=== PATIENT | female | born 1985 | race Caucasian/White ===

== ENCOUNTER 2022-07-08 07:46 | Inpatient (IN) ==
--- NOTE | 2022-07-08 10:50 | Ultrasound Report ---
US OB limited CLINICAL HISTORY: please estimate EFW COMPARISON STUDY: No previous studies for comparison. TECHNIQUE: Transabdominal sonography of the pelvis was performed. FINDINGS: Please note that a dedicated anatomical survey was not performed. Single viable intra uterine gestation is noted. Cephalic presentation. Amniotic fluid index is 9.14 cm. heart rate is normal at 150 bpm. Placenta is located anteriorly. Biparietal diameter measures 9.88 cm which deb esponds to an estimated gestational age of 40 weeks and 4 days. Head circumference measures 36.20 cm. Femur length measures 7.84 cm which corresponds to estimated gestational age of 40 weeks and 1 day. Abdominal circumference measures 38.43 cm. Estimated weight is 9 pounds and 15 ounces +/- 1 lb 8 oz or 4503 g. IMPRESSION: 1. Single viable intrauterine gestation. Normal heart rate. 2. Estimated weight of 9 pounds and 15 ounces or 4503 g. 3. Amniotic fluid index of 9.14 cm. ACT 112: Negative or not required by law. Electronically signed by: Theo Coronel M.D. 07/08/2022 10:49 AM
[2022-07-08] MEDS ORDERED: LIDOCAINE 1% LOCAL 20 ML VIAL INFIL PRN (11:22)
[2022-07-08] MEDS ORDERED: miSOPROStoL 50 MCG TAB PO ONE (11:22)
[2022-07-08] MEDS ORDERED: OXYTOCIN 30 UNITS/500 ML BAG IV PRN (11:22)
--- NOTE | 2022-07-08 11:29 | Obstetrical Progress Note ---
Date of Service July 08, 2022 Assessment & Plan (1) : Plan: Induction of labor pt is 37 yo G1 @ 39 + weeks Induction of labor for macrosomia done today showed EFW 4503gram Pt sheppard sono hx of DM or GDM Reviewed risk of brachial shoulder dystocia, brachial plexus injury and even permanent brain injury to baby Reviewed sono report with pt will proceed with induction labor FHR; CAT1 Ctx > minimal Cervidil #1 ordered Admission and Anticipated Discharge Date Admission Date: July 08, 2022 Results & Data ([facility]) Vital Signs (Past 12 Hours) Vital Signs Temp Pulse Resp BP 07/08/22 08:27 36.9 C 97 H 18 132/75 07/08/22 11:06 18 07/08/22 11:06 36.9 C 18 07/08/22 07:52 97 H 132/75
[2022-07-08] MEDS: LACTATED RINGER'S 1,000 ML IV PRN (12:00)
[2022-07-08 12:06] LABS: Hematocrit (blood only) 37.6 % (37.0-47.0); Hemoglobin 12.9 g/dl (12.0-16.0); Mean Corpuscular Hgb Conc 34.3 g/dL (32.0-36.0); Mean Corpuscular Volume 90.4 fL (80.0-100.0); Mean Platelet Volume 10.4 fL (9.4-12.4); Platelet Count 250 K/uL (130-400); RDW Coefficient of Variation 13.3 % (11.5-14.5); RDW Standard Deviation 44.2 fL (36.4-46.3); Red Blood Count 4.16 M/uL (4.20-5.40); White Blood Count 15.16 K/ul (4.8-10.8)
[2022-07-08] MEDS ORDERED: PENICILLIN G POTASSIUM 6 MU in DEXTROSE 5% 250 ML IV STA (12:37)
--- NOTE | 2022-07-08 18:22 | Obstetrical Progress Note ---
Date of Service July 08, 2022 Assessment & Plan (1) : Plan: Induction of labor for macrosomia Pt doing well FHR; CAT1 Ctx 1-3mins VE: ft/post Received 1 dose of Cytotec Manfred Dinner Cervidil Admission and Anticipated Discharge Date Admission Date: July 08, 2022 Results & Data ([facility]) Vital Signs (Past 12 Hours) Vital Signs Temp Pulse Resp BP 07/08/22 08:27 36.9 C 97 H 18 132/75 07/08/22 15:42 16 07/08/22 15:42 37.0 C 16 07/08/22 15:43 79 07/08/22 15:43 132/77 07/08/22 11:47 18 07/08/22 11:47 37.3 C 18 07/08/22 11:47 78 07/08/22 11:47 119/63 07/08/22 11:06 18 07/08/22 11:06 36.9 C 18 07/08/22 07:52 97 H 132/75
[2022-07-08] MEDS ORDERED: DINOPROSTONE 10 MG INSERT PV ONE (19:33)
--- NOTE | 2022-07-08 20:20 | Obstetrical Progress Note ---
Date of Service July 08, 2022 Assessment & Plan (1) : Plan: Pt doing well FHR: CAT1 CTX; 4-5min VE; ft/post Cervidil placed in vagina Admission and Anticipated Discharge Date Admission Date: July 08, 2022 Results & Data ([facility]) Vital Signs (Past 12 Hours) Vital Signs Temp Pulse Resp BP 07/08/22 08:27 36.9 C 97 H 18 132/75 07/08/22 19:44 100 H 07/08/22 19:42 18 07/08/22 19:42 36.7 C 18 07/08/22 19:42 131 H 07/08/22 19:42 117/70 07/08/22 15:42 16 07/08/22 15:42 37.0 C 16 07/08/22 15:43 79 07/08/22 15:43 132/77 07/08/22 11:47 18 07/08/22 11:47 37.3 C 18 07/08/22 11:47 78 07/08/22 11:47 119/63 07/08/22 11:06 18 07/08/22 11:06 36.9 C 18
--- NOTE | 2022-07-09 08:16 | History & Physical Report ---
Date of Service July 09, 2022 Assessment & Plan (1) Elective induction of labor planned: Plan: 37-year-old G1, P0 at 40 weeks of gestation, induction of labor at term for suspected macrosomia since yesterday, Vital signs stable afebrile, heart rate reassuring, Cervix is unfavorable, After long discussion of risk of shoulder dystocia patient decided to try for vaginal and PO Cytotec. (2) Macrosomia affecting management of mother in third trimester: Admission and Anticipated Discharge Date Admission Date: July 08, 2022 History of Present Illness Primary Care Provider: Nava Anthony DO Late entry from 8 AM . patient is a 37-year-old G1, P0 at 40 weeks of gestation who was admitted yesterday by Dr. Mann for induction of labor at term for suspected macrosomia. She had a growth ultrasound in the office 3 weeks ago and EFW was over 90th perc entile. She had ultrasound yesterday here and estimated weight was 4503 g +/- 675 gr. Patient was informed about increased risk of shoulder dystocia and the risks and she opted to try for vaginal . Patient has received 1 dose of p.o. Cytotec and then Cervidil overnight. I removed the Cervidil now and her cervix is still closed, thick and presenting part/ head is high not in pelvis. We discussed what to expect from induction of labor which may take a day or 2. We discussed induction agents as p.o. Cytotec, Cervidil. We also discussed of macrosomia with increased risk of shoulder dystocia. We discussed that shoulder dystocia is not predictable and can happen on a smaller baby or may not happen with the larger baby either. We know from the literature that risk of shoulder dyscrasia increases with increasing weight. The risk of shoulder dystocia are brachial plexus injury, clavicle fracture, delayed delivery with asphyxia of and brain injury and even . We also discussed primary is an option. After long discussion patient decided to try for vaginal and take p.o. Cytotec for cervical ripening. All questions were answered. Allergies Allergy/AdvReac Type Severity Reaction Status Date / Time Sulfa (Sulfonamide Allergy Nausea Verified 07/08/22 08:16 Antibiotics) Home Medications Medication Instructions Recorded Confirmed Type Iron (ferrous sulfate) 1 tab PO DAILY 07/08/22 07/08/22 History 1 tab PO DAILY 07/08/22 07/08/22 History Patient History Medical History Endometriosis Normal colonoscopy to rule out rectal pain-2009. Surgical History H/O oral surgery wisdom teeth removal in 2011. Family History Other Hypothyroidism Myocardial infarction Social History Smoking Status: Never smoker Hx Alcohol Use: Yes Hx Substance Use: No Preferred Language: [employer] Tutor Required: No Beliefs That Will Affect Care: None marital status: Current Living Situation: Spouse Other Information That Helps Us Care for You: No Feels Safe at Home: Yes Safety Concerns: Feels Safe At This Time Review of Systems as per Subjective / HPI Physical Exam Constitutional: WD/WN, vitals as above Gastrointestinal (Abdomen): normal bowel sounds, soft, nontender, no hepatosplenomegaly (gravid) Genitourinary: normal external appearance OB Exam Abdomen: + vertex Manual OB Exam: + cervical dilation fingertip, + cervical effacement 10% and + station high OB Exam Monitor Tracing: + external uterine monitor used and + category I Results & Data ([facility]) Vital Signs (Past 12 Hours) Vital Signs Temp Pulse Resp BP 07/09/22 07:10 36.9 C 75 16 126/74 07/09/22 03:09 18 07/09/22 03:09 36.6 C 18 07/09/22 03:07 77 108/57 L 07/08/22 22:31 18 07/08/22 22:31 36.7 C 18 07/08/22 22:31 78 07/08/22 22:31 98/56 L Code Status & VTE Plan VTE Prophylaxis Plan VTE Prophylaxis will be ordered: Yes
[2022-07-09] MEDS: miSOPROStoL 50 MCG TAB PO SCH ×3 (10:01→23:06)
--- NOTE | 2022-07-09 15:23 | Obstetrical Progress Note ---
Date of Service July 09, 2022 Assessment & Plan Admission and Anticipated Discharge Date Admission Date: July 08, 2022 Subjective Patient is reevaluated. 2nd dose of Cytotec was held at 14:00 She feels well, no complaints. She feels mild tightening, not painful. No LOF/VB +FM's FHR categ I [place] mild irregular contractions, palpated as mild and short lasting Continue with PO Cytotec Continue to monitor Results & Data ([facility]) Vital Signs (Past 12 Hours) Vital Signs Temp Pulse Resp BP 07/09/22 09:10 87 124/68 07/09/22 07:10 36.9 C 75 16 126/74
[2022-07-09] MEDS ORDERED: BUTORPHANOL TARTRATE 1 MG/ML VIAL IV PRN (15:36)
[2022-07-09] MEDS: LACTATED RINGER'S 1,000 ML IV PRN ×2 (15:50→17:00)
--- NOTE | 2022-07-09 21:22 | Obstetrical Progress Note ---
Date of Service July 09, 2022 Assessment & Plan Admission and Anticipated Discharge Date Admission Date: July 08, 2022 Subjective Patient is reevaluated She feels well, mild contractions, pain is 4-5/10 with some of them. She does not feel them all. No LOF/VB +FM VE: ft/ 30%/ -3, posterior, FHR categ I [place]: ctxs q 2-4 min Bed side US: Vertex, OP, EFW: 4130 gr +/- 600 gr Discussed options of cervical ripening with PO Cytotec, Cervidil or trial of Coffman balloon with low dose Oxytocin Patient does not think she can tolerate coffman balloon insertion. Patient has questions about C Section. Discussed C section is a major surgery, with risks including but not limited to bleeding , infection, injury to surrounding organs like bowels, bladder, ureters, adhesions, scarring, wound infection, blood cloths in legs/ lungs, longer recovery. She wants to think about all of these and then decide. All questions were answered. Results & Data ([facility]) Vital Signs (Past 12 Hours) Vital Signs Temp Pulse Resp BP 07/09/22 20:30 18 07/09/22 20:30 18 07/09/22 19:03 18 07/09/22 19:03 36.9 C 18 07/09/22 19:04 84 132/77 07/09/22 15:24 18 07/09/22 15:24 36.8 C 18 07/09/22 15:25 72 131/75
[2022-07-09] MEDS ORDERED: CALCIUM CARBONATE 500 MG CHEWABLE TAB PO PRN (22:26)
[2022-07-09] MEDS ORDERED: ePHEDrine sulfate 50 MG/ML AMP ONE (22:27)
[2022-07-09] MEDS ORDERED: SODIUM CHLORIDE 0.9% PF INJ 10 ML VIAL ONE (22:27)
[2022-07-09] MEDS ORDERED: LIDOCAINE 2%/EPINEPHRINE 1:200,000 20 ML SDV ONE (22:27)
[2022-07-09] MEDS ORDERED: fentaNYL citrate PF 100 MCG/2 ML VIAL ONE (22:27)
[2022-07-09] MEDS ORDERED: BUPIVACAINE 0.25% PF 30 ML VIAL ONE (22:27)
[2022-07-09] MEDS ORDERED: fentaNYL 2MCG/ML ROPIVACAINE 1.25MG/ML 100 ML BAG EPI ONE (22:28)
--- NOTE | 2022-07-09 22:28 | Obstetrical Progress Note ---
Date of Service July 09, 2022 Assessment & Plan Admission and Anticipated Discharge Date Admission Date: July 08, 2022 Subjective Patient decided to proceed with cervical ripening/ IOL but does not think she can tolerate Cervidil PV or Coffman balloon. She desires epidural and then place coffman balloon. She desires to eat before that. FHR categ I Continue to monitor closely. Results & Data ([facility]) Vital Signs (Past 12 Hours) Vital Signs Temp Pulse Resp BP 07/09/22 21:54 18 07/09/22 21:54 18 07/09/22 20:30 18 07/09/22 20:30 18 07/09/22 19:03 18 07/09/22 19:03 36.9 C 18 07/09/22 19:04 84 132/77 07/09/22 15:24 18 07/09/22 15:24 36.8 C 18 07/09/22 15:25 72 131/75
[2022-07-09] MEDS ORDERED: NALOXONE HCL 0.4 MG/1 ML VIAL/CARP IV PRN (23:07)
[2022-07-09] MEDS ORDERED: NALOXONE HCL 1 MG in SODIUM CHLORIDE 0.9% 1000ML 1,000 ML IV PRN (23:07)
[2022-07-09] MEDS ORDERED: NALBUPHINE HCL INJ 10 MG/ML AMP IV PRN (23:07)
[2022-07-09] MEDS ORDERED: diphenhydrAMINE 50 MG/ML VIAL IV PRN (23:07)
[2022-07-09] MEDS ORDERED: ePHEDrine sulfate 50 MG/ML AMP IV PRN (23:07)
--- NOTE | 2022-07-09 23:09 | Anesthesiology Consultation ---
Date of Service July 09, 2022 Assessment & Plan (1) Encounter for pre-operative examination: Chart Review Chart Review: Patient NOT seen in Pre Admission Testing and Acceptable Risk for Labor Epidural Consults Requested none History Height/Weight Height: 5 ft 6 in Weight: 94.055 kg Allergies Allergy/AdvReac Type Severity Reaction Status Date / Time Sulfa (Sulfonamide Allergy Nausea Verified 07/08/22 08:16 Antibiotics) Medications Home Medications Medication Instructions Recorded Confirmed Last Taken Iron (ferrous sulfate) 1 tab PO DAILY 07/08/22 07/08/22 07/06/22 08:00 1 tab PO DAILY 07/08/22 07/08/22 07/06/22 08:00 Active Medications Generic Name Dose Route Start Last Admin Trade Name Freq PRN Reason Stop Dose Admin Lactated Ringer's 1,000 mls @ 150 mls/hr 07/08/22 11:22 07/09/22 23:00 Lr IV 07/10/22 11:21 999 mls/hr .[id number] PRN Infusion L&D Protocol Protocol Misoprostol 50 mcg 07/09/22 12:00 07/09/22 23:06 Misoprostol 50 Mcg Tab PO 08/08/22 09:00 Not Given Q4 VALERIA Past Medical History Medical History Endometriosis Normal colonoscopy to rule out rectal pain-2009. Past Family History Family History Other Hypothyroidism Myocardial infarction Past Surgical History Surgical History H/O oral surgery wisdom teeth removal in 2011. Social History Smoking Status: Never smoker Hx Alcohol Use: Yes Hx Substance Use: No substance use type: former substance user Physical Exam Vital Signs Last Vital Signs Temp 98.4 F 07/09/22 19:03 Pulse 96 H 07/09/22 23:04 Resp 18 07/09/22 21:54 BP 132/77 07/09/22 19:04 Pulse Ox 92 07/09/22 23:04 Testing Laboratory Results 07/08/22 11:19 Blood Type A Positive 07/08/22 11:22 Antibody Screen NEGATIVE 07/08/22 11:22
[2022-07-09] MEDS: fentaNYL 2MCG/ML ROPIVACAINE 1.25MG/ML 100 ML BAG EPI PRN (23:36)
[2022-07-10] MEDS ORDERED: OXYTOCIN 30 UNITS/500 ML BAG IV PRN (00:41)
--- NOTE | 2022-07-10 00:46 | Obstetrical Progress Note ---
Date of Service July 10, 2022 Assessment & Plan Admission and Anticipated Discharge Date Admission Date: July 08, 2022 Subjective Patient has received epidural and ready for Coffman balloon insertion FHR categ I VE; tight 1cm/ 20%/ firm/ posterior cervix Patient is placed in dorsal lithotomy position and speculum was placed in vagina, cervix was seen and irretated from exam with some bleeding, cleaned with Betadine Coffman catheter was inserted and inflated with 40 ml of sterile water and applied tension on theinternal of cervix, attached to inner tigh Another coffman catheter was inserted to drain the bladder. VB stopped. Bed side US: placenta anterior and normal Uterus soft Plan to start PCN for GBS and Low dose Oxytocin per protocol, SCD's Continue to monitor closely. Results & Data ([facility]) Vital Signs (Past 12 Hours) Vital Signs Temp Pulse Resp BP Pulse Ox 07/10/22 00:39 111 H 99 07/10/22 00:34 99 07/10/22 00:34 96 H 07/10/22 00:34 93 H 111/55 L 07/10/22 00:29 88 98 07/10/22 00:24 88 99 07/10/22 00:19 91 H 96 07/10/22 00:14 104 H 99 07/10/22 00:09 85 97 07/10/22 00:04 92 H 98 07/09/22 23:45 18 07/09/22 23:45 18 07/09/22 23:50 18 07/09/22 23:50 18 07/09/22 23:55 20 07/09/22 23:55 20 07/10/22 00:03 36.5 C 07/10/22 00:00 18 07/10/22 00:00 18 07/10/22 00:02 101 H 99/56 L 07/09/22 23:59 88 96 07/09/22 23:58 82 96/50 L 07/09/22 23:56 91 H 100/47 L 07/09/22 23:54 105 H 98 07/09/22 23:49 95 H 97 07/09/22 23:48 99 H 105/58 L 07/09/22 23:46 92 H 114/59 L 07/09/22 23:44 96 H 104/55 L 96 07/09/22 23:42 113 H 110/59 L 07/09/22 23:40 110 H 18 123/62 07/09/22 23:39 113 H 97 07/09/22 23:38 97 H 129/67 07/09/22 23:36 106 H 125/69 07/09/22 23:35 104 H 125/70 07/09/22 23:34 103 H 96 07/09/22 23:29 105 H 97 07/09/22 23:30 105 H 18 146/71 H 07/09/22 23:24 110 H 97 07/09/22 23:19 91 H 97 07/09/22 23:14 97 H 96 07/09/22 23:09 95 H 96 07/09/22 23:04 96 H 92 07/09/22 21:54 18 07/09/22 21:54 18 07/09/22 20:30 18 07/09/22 20:30 18 07/09/22 19:03 18 07/09/22 19:03 36.9 C 18 07/09/22 19:04 84 132/77 07/09/22 15:24 18 07/09/22 15:24 36.8 C 18 07/09/22 15:25 72 131/75
[2022-07-10] MEDS: LACTATED RINGER'S 1,000 ML IV PRN (04:20)
[2022-07-10] MEDS: PENICILLIN G POTASSIUM 3 MU in DEXTROSE 5% 100 ML IV PRN ×4 (04:20→15:48)
--- NOTE | 2022-07-10 07:37 | Obstetrical Progress Note ---
Date of Service July 10, 2022 Assessment & Plan Admission and Anticipated Discharge Date Admission Date: July 08, 2022 Subjective Patient feels well, slept and rested No pain nor pressure VE: Guevara bulb was in vagina, removed intact Cervix: 4-5 cm/ 50%/ -3, o bag nor membranes, FHR categ I [place]: ctxs q 2-3 min, Oxytocin is at 9 miu/min Continue to monitor Results & Data ([facility]) Vital Signs (Past 12 Hours) Vital Signs Temp Pulse Resp BP Pulse Ox 07/10/22 07:05 37.2 C 16 07/10/22 07:05 16 07/10/22 07:32 87 124/68 07/10/22 07:29 72 94 07/10/22 07:24 73 95 07/10/22 07:19 76 97 07/10/22 07:17 78 112/64 07/10/22 07:14 79 96 07/10/22 07:09 82 96 07/10/22 07:04 77 95 07/10/22 07:01 68 98/56 L 07/10/22 06:59 68 94 07/10/22 06:54 72 94 07/10/22 06:49 71 94 07/10/22 06:47 68 108/63 07/10/22 06:44 73 95 07/10/22 06:39 84 97 07/10/22 06:34 79 96 07/10/22 06:32 78 119/66 07/10/22 06:30 18 07/10/22 06:30 18 07/10/22 06:29 71 95 07/10/22 06:24 71 96 07/10/22 06:19 78 96 07/10/22 06:15 64 106/59 L 07/10/22 06:14 79 96 07/10/22 06:00 18 07/10/22 06:00 18 07/10/22 06:09 81 96 07/10/22 06:04 83 98 07/10/22 06:03 78 105/52 L 07/10/22 06:01 77 73/51 L 07/10/22 05:30 18 07/10/22 05:30 18 07/10/22 05:59 73 96 07/10/22 05:54 73 94 07/10/22 05:49 76 95 07/10/22 05:46 76 91/49 L 07/10/22 05:44 74 95 07/10/22 05:39 74 95 07/10/22 05:34 75 95 07/10/22 05:32 72 92/55 L 07/10/22 05:29 75 95 07/10/22 05:24 75 95 07/10/22 05:19 76 95 07/10/22 05:17 71 90/52 L 07/10/22 05:14 71 95 07/10/22 05:00 18 07/10/22 05:00 36.9 C 18 07/10/22 05:09 71 95 07/10/22 05:04 73 95 07/10/22 05:01 76 106/51 L 07/10/22 04:59 85 96 07/10/22 04:54 74 96 07/10/22 04:49 82 96 07/10/22 04:45 80 99/54 L 07/10/22 04:44 86 96 07/10/22 04:39 90 96 07/10/22 04:34 92 H 96 07/10/22 04:32 82 98/55 L 07/10/22 04:30 18 07/10/22 04:30 18 07/10/22 04:29 79 95 07/10/22 04:24 82 95 07/10/22 04:19 72 95 07/10/22 04:17 75 94/55 L 07/10/22 04:14 78 95 07/10/22 04:09 78 95 07/10/22 04:04 73 95 07/10/22 04:00 18 07/10/22 04:00 18 07/10/22 04:02 75 92/53 L 07/10/22 03:59 79 95 07/10/22 03:54 78 95 07/10/22 03:49 78 95 07/10/22 03:44 81 95 07/10/22 03:45 80 87/50 L 07/10/22 03:39 75 95 07/10/22 03:34 76 95 07/10/22 03:30 18 07/10/22 03:30 18 07/10/22 03:32 78 88/52 L 07/10/22 03:29 79 94 07/10/22 03:24 85 95 07/10/22 03:19 82 95 07/10/22 03:14 81 95 07/10/22 03:15 77 91/54 L 07/10/22 03:09 80 95 07/10/22 03:04 80 94 07/10/22 03:02 80 92/51 L 07/10/22 02:59 84 94 07/10/22 02:54 81 95 07/10/22 02:49 81 95 07/10/22 02:46 81 98/53 L 07/10/22 02:44 86 95 07/10/22 02:39 86 96 07/10/22 02:34 85 95 07/10/22 02:30 37.0 C 85 18 103/53 L 07/10/22 02:29 82 96 07/10/22 02:24 102 H 97 07/10/22 02:19 79 95 07/10/22 02:16 83 99/49 L 07/10/22 02:14 88 95 07/10/22 02:09 79 94 07/10/22 02:04 81 95 07/10/22 02:00 20 07/10/22 02:00 20 07/10/22 02:01 77 95/53 L 07/10/22 01:59 79 95 07/10/22 01:54 75 95 07/10/22 01:49 79 94 07/10/22 01:45 75 90/51 L 07/10/22 01:44 76 95 07/10/22 01:39 74 95 07/10/22 01:34 78 95 07/10/22 01:30 76 18 95/49 L 07/10/22 01:29 75 96 07/10/22 01:24 78 96 07/10/22 01:19 76 97 07/10/22 01:16 75 102/53 L 07/10/22 01:14 82 99 07/10/22 01:09 79 98 07/10/22 01:04 93 H 99 07/10/22 00:59 91 H 99 07/10/22 00:54 83 99 07/10/22 00:49 96 H 99 07/10/22 00:30 18 07/10/22 00:30 18 07/10/22 00:46 76 100/55 L 07/10/22 00:44 92 H 98 07/10/22 00:39 111 H 99 07/10/22 00:34 99 07/10/22 00:34 96 H 07/10/22 00:34 93 H 111/55 L 07/10/22 00:29 88 98 07/10/22 00:24 88 99 07/10/22 00:19 91 H 96 07/10/22 00:14 104 H 99 07/10/22 00:09 85 97 07/10/22 00:04 92 H 98 07/09/22 23:45 18 07/09/22 23:45 18 07/09/22 23:50 18 07/09/22 23:50 18 07/09/22 23:55 20 07/09/22 23:55 20 07/10/22 00:03 36.5 C 07/10/22 00:00 18 07/10/22 00:00 18 07/10/22 00:02 101 H 99/56 L 07/09/22 23:59 88 96 07/09/22 23:58 82 96/50 L 07/09/22 23:56 91 H 100/47 L 07/09/22 23:54 105 H 98 07/09/22 23:49 95 H 97 07/09/22 23:48 99 H 105/58 L 07/09/22 23:46 92 H 114/59 L 07/09/22 23:44 96 H 104/55 L 96 07/09/22 23:42 113 H 110/59 L 07/09/22 23:40 110 H 18 123/62 07/09/22 23:39 113 H 97 07/09/22 23:38 97 H 129/67 07/09/22 23:36 106 H 125/69 07/09/22 23:35 104 H 125/70 07/09/22 23:34 103 H 96 07/09/22 23:29 105 H 97 07/09/22 23:30 105 H 18 146/71 H 07/09/22 23:24 110 H 97 07/09/22 23:19 91 H 97 07/09/22 23:14 97 H 96 07/09/22 23:09 95 H 96 07/09/22 23:04 96 H 92 07/09/22 21:54 18 07/09/22 21:54 18 07/09/22 20:30 18 07/09/22 20:30 18
[2022-07-10] MEDS: fentaNYL 2MCG/ML ROPIVACAINE 1.25MG/ML 100 ML BAG EPI PRN ×2 (08:13→13:22)
[2022-07-10] MEDS ORDERED: Nursing to Pharmacy Communication SCH (09:00)
[2022-07-10] MEDS ORDERED: BUPIVACAINE 0.25% PF 30 ML VIAL ONE ×2 (09:37→13:32)
[2022-07-10] MEDS ORDERED: fentaNYL citrate PF 100 MCG/2 ML VIAL ONE ×3 (09:55→16:29)
--- NOTE | 2022-07-10 10:01 | Communication Note ---
Date of Service: July 10, 2022 Patient stated having labor pains. The epidural was bolused with 3mL of 0.25% bupivacaine and 50mcg of fentanyl. The patient stated her labor pains were imp roved. VSS throughout.
[2022-07-10] MEDS ORDERED: ONDANSETRON INJ 2 MG/ML 2 ML VIAL IV PRN ×2 (11:25→17:51)
[2022-07-10] MEDS ORDERED: LACTATED RINGER'S 1,000 ML IV SCH ×3 (11:45→18:15)
[2022-07-10] MEDS ORDERED: SODIUM CHLORIDE 0.9% PF INJ 10 ML VIAL ONE (13:32)
--- NOTE | 2022-07-10 14:04 | Communication Note ---
Date of Service: July 10, 2022 The patient stated having increased labor pains. The epidural was bolused with 8mL of 0.125% bupivacaine and 75mcg of fentanyl. The patient stated the labor pains had improved. VSS throughout.
[2022-07-10] MEDS ORDERED: LIDOCAINE 2%/EPINEPHRINE 1:200,000 20 ML SDV ONE ×2 (14:27→16:27)
--- NOTE | 2022-07-10 14:50 | Communication Note ---
Date of Service: July 10, 2022 The patient stated having increasing labor pains. The epidural was bolused with 4mL of lido 2% with epi 1:200K. The patient stated her labor pains were impr elizabeth. VSS throughout.
[2022-07-10] MEDS ORDERED: AZITHROMYCIN 500 MG in DEXTROSE 5% 250 ML IV ONE (16:12)
--- NOTE | 2022-07-10 16:17 | Labor Progress Brief Note ---
Date of Service July 10, 2022 Assessment & Plan Admission and Anticipated Discharge Date Admission Date: July 08, 2022 Physical Exam Genitourinary: Manual OB Exam: + cervical dilation 10 cm, + cervical effacement 100% and + station + 1 OB Exam Monitor Tracing: + external FHT monitor used, + external uterine monitor used, + category I and + normal FHT variability patient unable to tolerate pushing anymore and is requesting a section. Consents obtained. Will notify peds/anesthesia. Results & Data Vital Signs (Past 12 Hours) Vital Signs Temp Pulse Resp BP Pulse Ox 07/10/22 07:05 37.2 C 16 07/10/22 07:05 16 07/10/22 16:14 106 H 98 07/10/22 16:09 105 H 97 07/10/22 16:10 115 H 83 L 07/10/22 16:04 105 H 81 L 07/10/22 15:59 136 H 99 07/10/22 15:57 101 H 80 L 07/10/22 15:54 104 H 99 07/10/22 15:49 116 H 99 07/10/22 15:47 83 130/66 07/10/22 15:44 85 98 07/10/22 15:43 84 85 L 07/10/22 15:39 87 97 07/10/22 15:36 88 81 L 07/10/22 15:34 86 97 07/10/22 15:31 93 H 155/67 H 07/10/22 15:29 87 98 07/10/22 15:30 36.7 C 90 18 84 L 07/10/22 15:24 98 H 98 07/10/22 15:19 93 H 96 07/10/22 15:17 104 H 129/60 07/10/22 15:14 90 94 07/10/22 15:09 86 95 07/10/22 15:04 75 95 07/10/22 15:01 77 110/62 07/10/22 14:59 82 94 07/10/22 14:54 82 93 07/10/22 14:49 79 95 07/10/22 14:47 77 106/56 L 07/10/22 14:44 80 94 07/10/22 14:39 91 H 96 07/10/22 14:37 89 124/66 07/10/22 14:36 99 H 85 L 03/15/23 14:34 81 97 07/10/22 14:32 92 H 105/64 07/10/22 14:29 76 95 07/10/22 14:24 85 98 07/10/22 14:19 94 H 98 07/10/22 14:14 80 L 07/10/22 14:14 92 H 07/10/22 14:14 89 83 L 07/10/22 14:09 85 96 07/10/22 14:04 87 98 07/10/22 14:01 80 123/65 07/10/22 13:59 94 H 97 07/10/22 14:00 85 118/72 07/10/22 13:54 93 H 97 07/10/22 13:49 89 98 07/10/22 13:46 37.3 C 86 134/60 07/10/22 13:44 109 H 98 07/10/22 13:43 98 H 115/56 L 07/10/22 13:39 100 H 98 07/10/22 13:34 107 H 95 07/10/22 13:31 110 H 114/73 07/10/22 13:29 108 H 97 07/10/22 13:24 136 H 95 07/10/22 13:19 103 H 95 07/10/22 13:14 99 H 96 07/10/22 13:10 103 H 83 L 07/10/22 13:09 97 H 97 07/10/22 13:04 95 H 98 07/10/22 13:03 102 H 87 L 07/10/22 13:00 95 H 123/71 07/10/22 12:59 94 H 97 07/10/22 12:54 99 H 98 07/10/22 12:55 109 H 85 L 07/10/22 12:49 103 H 93 07/10/22 12:50 104 H 87 L 07/10/22 12:48 112 H 126/51 L 07/10/22 12:44 116 H 95 07/10/22 12:39 102 H 98 07/10/22 12:34 96 H 97 07/10/22 12:30 98 H 18 114/66 07/10/22 12:29 79 96 07/10/22 12:24 88 98 07/10/22 12:19 76 98 07/10/22 12:16 106 H 114/67 07/10/22 12:14 82 99 07/10/22 12:09 85 96 07/10/22 11:35 37.2 C 07/10/22 12:04 84 98 07/10/22 12:01 93 H 120/72 07/10/22 11:59 83 99 07/10/22 11:54 81 98 07/10/22 11:49 75 98 07/10/22 11:45 71 115/59 L 07/10/22 11:44 75 98 07/10/22 11:39 68 97 07/10/22 11:34 85 98 07/10/22 11:30 85 104/56 L 07/10/22 11:29 83 99 07/10/22 11:24 96 H 99 07/10/22 11:19 73 99 07/10/22 11:16 68 94/51 L 07/10/22 11:14 69 98 07/10/22 11:09 72 97 07/10/22 11:04 70 98 07/10/22 11:00 72 16 90/47 L 07/10/22 10:59 69 98 07/10/22 10:54 80 98 07/10/22 10:49 75 98 07/10/22 10:46 71 96/54 L 07/10/22 10:00 16 07/10/22 10:00 16 07/10/22 10:44 67 98 07/10/22 10:39 71 98 07/10/22 10:34 74 99 07/10/22 10:30 97 H 16 113/62 07/10/22 10:29 87 98 07/10/22 10:24 74 98 07/10/22 10:19 74 98 07/10/22 10:14 77 97 07/10/22 10:15 88 102/59 L 07/10/22 10:09 71 97 07/10/22 10:04 71 98 07/10/22 10:01 83 120/69 07/10/22 09:59 68 98 07/10/22 09:58 71 108/61 07/10/22 09:54 70 98 07/10/22 09:49 76 98 07/10/22 09:46 75 116/62 07/10/22 09:44 71 98 07/10/22 09:42 74 119/67 07/10/22 09:30 16 07/10/22 09:30 16 07/10/22 09:39 76 97 07/10/22 09:34 72 97 07/10/22 09:29 84 99 07/10/22 09:24 79 98 07/10/22 09:19 77 97 07/10/22 09:17 16 07/10/22 09:17 37.0 C 16 07/10/22 09:16 74 111/56 L 07/10/22 09:14 70 97 07/10/22 09:09 77 98 07/10/22 08:00 16 07/10/22 08:00 16 07/10/22 09:04 71 98 07/10/22 09:02 75 105/51 L 07/10/22 08:30 16 07/10/22 08:30 16 07/10/22 08:59 75 97 07/10/22 08:54 75 97 07/10/22 08:49 72 98 07/10/22 08:46 77 115/74 07/10/22 08:44 72 96 07/10/22 08:39 75 97 07/10/22 08:34 83 98 07/10/22 08:31 74 117/76 07/10/22 08:29 77 97 07/10/22 08:24 76 97 07/10/22 08:19 70 97 07/10/22 08:15 85 124/66 07/10/22 08:14 80 97 07/10/22 08:09 74 97 07/10/22 08:04 71 98 07/10/22 08:01 73 113/68 07/10/22 07:59 73 97 07/10/22 07:54 69 97 07/10/22 07:49 83 97 07/10/22 07:30 37.2 C 07/10/22 07:46 82 93/50 L 07/10/22 07:44 78 96 07/10/22 07:39 91 H 96 07/10/22 07:34 86 96 07/10/22 07:32 87 124/68 07/10/22 07:29 72 94 07/10/22 07:24 73 95 07/10/22 07:19 76 97 07/10/22 07:17 78 112/64 07/10/22 07:14 79 96 07/10/22 07:09 82 96 07/10/22 07:04 77 95 07/10/22 07:01 68 98/56 L 07/10/22 06:59 68 94 07/10/22 06:54 72 94 07/10/22 06:49 71 94 07/10/22 06:47 68 108/63 07/10/22 06:44 73 95 07/10/22 06:39 84 97 07/10/22 06:34 79 96 07/10/22 06:32 78 119/66 07/10/22 06:30 18 07/10/22 06:30 18 07/10/22 06:29 71 95 07/10/22 06:24 71 96 07/10/22 06:19 78 96 07/10/22 06:15 64 106/59 L 07/10/22 06:14 79 96 07/10/22 06:00 18 07/10/22 06:00 18 07/10/22 06:09 81 96 07/10/22 06:04 83 98 07/10/22 06:03 78 105/52 L 07/10/22 06:01 77 73/51 L 07/10/22 05:30 18 07/10/22 05:30 18 07/10/22 05:59 73 96 07/10/22 05:54 73 94 07/10/22 05:49 76 95 07/10/22 05:46 76 91/49 L 07/10/22 05:44 74 95 07/10/22 05:39 74 95 07/10/22 05:34 75 95 07/10/22 05:32 72 92/55 L 07/10/22 05:29 75 95 07/10/22 05:24 75 95 07/10/22 05:19 76 95 07/10/22 05:17 71 90/52 L 07/10/22 05:14 71 95 07/10/22 05:00 18 07/10/22 05:00 36.9 C 18 07/10/22 05:09 71 95 07/10/22 05:04 73 95 07/10/22 05:01 76 106/51 L 07/10/22 04:59 85 96 07/10/22 04:54 74 96 07/10/22 04:49 82 96 07/10/22 04:45 80 99/54 L 07/10/22 04:44 86 96 07/10/22 04:39 90 96 07/10/22 04:34 92 H 96 07/10/22 04:32 82 98/55 L 07/10/22 04:30 18 07/10/22 04:30 18 07/10/22 04:29 79 95 07/10/22 04:24 82 95 07/10/22 04:19 72 95 07/10/22 04:17 75 94/55 L
[2022-07-10] MEDS ORDERED: ceFAZolin 2000MG 2,000 MG/15 ML SYR IV SCH (16:30)
[2022-07-10] MEDS ORDERED: ONDANSETRON INJ 2 MG/ML 2 ML VIAL ONE (16:30)
[2022-07-10] MEDS ORDERED: MoRPHine SULFATE PF 1 MG/ML 10 ML AMP/VIAL ONE (16:31)
[2022-07-10] MEDS ORDERED: DEXAMETHASONE SOD INJ 4 MG/ML VIAL ONE (16:32)
[2022-07-10] MEDS ORDERED: CITRIC ACID/SODIUM CITRATE 15 ML UDC ONE (16:32)
[2022-07-10] MEDS ORDERED: OXYTOCIN 10 UNITS/ML 10ML VIAL ONE (16:36)
[2022-07-10] MEDS ORDERED: LACTATED RINGER'S 500 ML IV PRN (17:51)
[2022-07-10] MEDS ORDERED: NALOXONE HCL 0.4 MG/1 ML VIAL/CARP IV PRN (17:51)
[2022-07-10] MEDS ORDERED: diphenhydrAMINE 50 MG/ML VIAL IV PRN (17:51)
[2022-07-10] MEDS ORDERED: ePHEDrine sulfate 50 MG/ML AMP IV PRN (17:51)
[2022-07-10] MEDS ORDERED: NALBUPHINE HCL INJ 10 MG/ML AMP IV PRN (17:51)
[2022-07-10] MEDS ORDERED: NALOXONE HCL 1 MG in SODIUM CHLORIDE 0.9% 1000ML 1,000 ML IV PRN (17:51)
[2022-07-10] MEDS ORDERED: MEPERIDINE HCL 25 MG/ML CARP/VIAL IV PRN (17:51)
[2022-07-10] MEDS ORDERED: MoRPHine SULFATE PF 1 MG/ML 10 ML AMP/VIAL INT SPINAL ONE (17:51)
[2022-07-10] MEDS ORDERED: NALOXONE HCL 0.08 MG in SYRINGE 1.8 ML IV PRN (17:51)
[2022-07-10] MEDS ORDERED: NO NARCOTICS OR SEDATIVES SCH (18:00)
[2022-07-10] MEDS ORDERED: DC INTRASPINAL MORPHINE SCH (18:00)
[2022-07-10] MEDS ORDERED: SODIUM CHLORIDE 0.9% 1000ML 1,000 ML IV SCH (18:00)
--- NOTE | 2022-07-10 18:09 | Post Operative Brief Note ---
Immediate Post Op Note v1 Date of Surgery July 10, 2022 Pre & Post Diagnosis Operation Date: 07/10/22 17:15 Pre-Op Diagnosis: Arrest of descent, patient requesting Post-Op Diagnosis: Arrest of descent, patient requesting I identified the patient and participated in the time-out.: Yes Procedure Operation Date: 07/10/22 17:15 Actual Procedures p Section in LD delivery of live male child at 1711 - Lucas Gutierrez MD Surgeon Lucas Gutierrez MD Vegetable [employer] Dr. Haas Estimated Blood Loss 700 Findings Consistent with Post-Op Diagnosis live male apgars 8/9 weight 8#7oz. Fluids LR 1000 ml. Specimens placenta Drains Guevara Catheter Anesthesia Type Spinal Complications none Disposition Accompanied Patient To Recovery: Yes Overlapping Procedure I was present for: the critical portions of procedure. I was immediately available: during the entire case. Back up surgeon: was not required during procedure.
[2022-07-10] MEDS ORDERED: KETOROLAC 30 MG/ML VIAL IV PRN (18:12)
[2022-07-10] MEDS ORDERED: MAGNESIUM HYDROXIDE SUSP 30 ML UDC PO PRN (18:12)
[2022-07-10] MEDS ORDERED: HYDROCORTISONE ACETATE 25 MG SUPP PR PRN (18:12)
[2022-07-10] MEDS ORDERED: DIPHTHERIA/TETANUS/PERTUSSIS 0.5mL SYR/VIAL (Age 7+yrs) IM ONE (18:12)
[2022-07-10] MEDS ORDERED: BENZOCAINE 20% AER SPR 82.5 GM CAN EXT PRN (18:12)
[2022-07-10] MEDS ORDERED: SENNA 8.6 MG TAB PO PRN (18:12)
--- NOTE | 2022-07-10 18:27 | Anesthesia Procedure Note ---
Date of Service July 10, 2022 Anesthesia Post Epidural Note Vital Signs Vital Signs: Temp Pulse Resp BP Pulse Ox 98.2 F 99 H 16 139/81 94 07/10/22 18:00 07/10/22 18:24 07/10/22 18:20 07/10/22 18:24 07/10/22 18:24 Notes Mental Status: alert / awake / arousable and participated in evaluation Nausea / Vomiting: adequately controlled Pain: adequately controlled Airway Patency, RR, SpO2: stable & adequate BP & HR: stable & adequate Hydration State: stable & adequate Neuraxial Anesthesia: was administered and sensory block is resolving Anesthetic Complications: no major complications apparent and Pt Satisfied with anesthetic care Epidural: Removed without complications and With tip intact
--- NOTE | 2022-07-10 18:28 | Anesthesiology Progress Note ---
Date of Service July 10, 2022 Anesthesia Post Procedure Vital Signs Vital Signs: Temp Pulse Resp BP Pulse Ox 07/10/22 18:20 16 07/10/22 18:10 16 07/10/22 18:00 98.2 F 18 07/10/22 07:05 99.0 F 16 07/10/22 07:05 16 07/10/22 18:24 99 H 139/81 94 07/10/22 18:21 100 H 97 07/10/22 18:19 91 H 93 07/10/22 18:16 91 H 97 07/10/22 18:11 86 98 07/10/22 18:06 94 H 98 07/10/22 18:05 101 H 90 07/10/22 18:01 99 H 97 07/10/22 17:56 97 H 91/52 L 96 07/10/22 17:55 104 H 92 07/10/22 16:46 88 132/68 07/10/22 16:44 92 H 98 07/10/22 16:39 104 H 99 07/10/22 16:40 100 H 86 L 07/10/22 16:34 93 H 100 07/10/22 16:31 89 124/67 07/10/22 16:29 87 99 07/10/22 16:24 108 H 97 07/10/22 16:19 129 H 78 L 07/10/22 16:15 105 H 140/70 07/10/22 16:14 106 H 98 07/10/22 16:09 105 H 97 07/10/22 16:10 115 H 83 L 07/10/22 16:04 105 H 81 L 07/10/22 15:59 136 H 99 07/10/22 15:57 101 H 80 L 07/10/22 15:54 104 H 99 07/10/22 15:49 116 H 99 07/10/22 15:47 83 130/66 07/10/22 15:44 85 98 07/10/22 15:43 84 85 L 07/10/22 15:39 87 97 07/10/22 15:36 88 81 L 07/10/22 15:34 86 97 07/10/22 15:31 93 H 155/67 H 07/10/22 15:29 87 98 07/10/22 15:30 98.1 F 90 18 84 L 07/10/22 15:24 98 H 98 07/10/22 15:19 93 H 96 07/10/22 15:17 104 H 129/60 07/10/22 15:14 90 94 07/10/22 15:09 86 95 07/10/22 15:04 75 95 07/10/22 15:01 77 110/62 07/10/22 14:59 82 94 07/10/22 14:54 82 93 07/10/22 14:49 79 95 07/10/22 14:47 77 106/56 L 07/10/22 14:44 80 94 07/10/22 14:39 91 H 96 07/10/22 14:37 89 124/66 07/10/22 14:36 99 H 85 L 07/10/22 14:34 81 97 07/10/22 14:32 92 H 105/64 07/10/22 14:29 76 95 07/10/22 14:24 85 98 07/10/22 14:19 94 H 98 07/10/22 14:14 80 L 07/10/22 14:14 92 H 07/10/22 14:14 89 83 L 07/10/22 14:09 85 96 07/10/22 14:04 87 98 07/10/22 14:01 80 123/65 07/10/22 13:59 94 H 97 07/10/22 14:00 85 118/72 07/10/22 13:54 93 H 97 07/10/22 13:49 89 98 07/10/22 13:46 99.1 F 86 134/60 07/10/22 13:44 109 H 98 07/10/22 13:43 98 H 115/56 L 07/10/22 13:39 100 H 98 07/10/22 13:34 107 H 95 07/10/22 13:31 110 H 114/73 07/10/22 13:29 108 H 97 07/10/22 13:24 136 H 95 07/10/22 13:19 103 H 95 07/10/22 13:14 99 H 96 07/10/22 13:10 103 H 83 L 07/10/22 13:09 97 H 97 07/10/22 13:04 95 H 98 07/10/22 13:03 102 H 87 L 07/10/22 13:00 95 H 123/71 07/10/22 12:59 94 H 97 07/10/22 12:54 99 H 98 07/10/22 12:55 109 H 85 L 07/10/22 12:49 103 H 93 07/10/22 12:50 104 H 87 L 07/10/22 12:48 112 H 126/51 L 07/10/22 12:44 116 H 95 07/10/22 12:39 102 H 98 07/10/22 12:34 96 H 97 07/10/22 12:30 98 H 18 114/66 07/10/22 12:29 79 96 07/10/22 12:24 88 98 07/10/22 12:19 76 98 07/10/22 12:16 106 H 114/67 07/10/22 12:14 82 99 07/10/22 12:09 85 96 07/10/22 11:35 99.0 F 07/10/22 12:04 84 98 07/10/22 12:01 93 H 120/72 07/10/22 11:59 83 99 07/10/22 11:54 81 98 07/10/22 11:49 75 98 07/10/22 11:45 71 115/59 L 07/10/22 11:44 75 98 07/10/22 11:39 68 97 07/10/22 11:34 85 98 07/10/22 11:30 85 104/56 L 07/10/22 11:29 83 99 07/10/22 11:24 96 H 99 07/10/22 11:19 73 99 07/10/22 11:16 68 94/51 L 07/10/22 11:14 69 98 07/10/22 11:09 72 97 07/10/22 11:04 70 98 07/10/22 11:00 72 16 90/47 L 07/10/22 10:59 69 98 07/10/22 10:54 80 98 07/10/22 10:49 75 98 07/10/22 10:46 71 96/54 L 07/10/22 10:00 16 07/10/22 10:00 16 07/10/22 10:44 67 98 07/10/22 10:39 71 98 07/10/22 10:34 74 99 07/10/22 10:30 97 H 16 113/62 07/10/22 10:29 87 98 07/10/22 10:24 74 98 07/10/22 10:19 74 98 07/10/22 10:14 77 97 07/10/22 10:15 88 102/59 L 07/10/22 10:09 71 97 07/10/22 10:04 71 98 07/10/22 10:01 83 120/69 07/10/22 09:59 68 98 07/10/22 09:58 71 108/61 07/10/22 09:54 70 98 07/10/22 09:49 76 98 07/10/22 09:46 75 116/62 07/10/22 09:44 71 98 07/10/22 09:42 74 119/67 07/10/22 09:30 16 07/10/22 09:30 16 07/10/22 09:39 76 97 07/10/22 09:34 72 97 07/10/22 09:29 84 99 07/10/22 09:24 79 98 07/10/22 09:19 77 97 07/10/22 09:17 16 07/10/22 09:17 98.6 F 16 07/10/22 09:16 74 111/56 L 07/10/22 09:14 70 97 07/10/22 09:09 77 98 07/10/22 08:00 16 07/10/22 08:00 16 07/10/22 09:04 71 98 07/10/22 09:02 75 105/51 L 07/10/22 08:30 16 07/10/22 08:30 16 07/10/22 08:59 75 97 07/10/22 08:54 75 97 07/10/22 08:49 72 98 07/10/22 08:46 77 115/74 07/10/22 08:44 72 96 07/10/22 08:39 75 97 07/10/22 08:34 83 98 07/10/22 08:31 74 117/76 07/10/22 08:29 77 97 07/10/22 08:24 76 97 07/10/22 08:19 70 97 07/10/22 08:15 85 124/66 07/10/22 08:14 80 97 07/10/22 08:09 74 97 07/10/22 08:04 71 98 07/10/22 08:01 73 113/68 07/10/22 07:59 73 97 07/10/22 07:54 69 97 07/10/22 07:49 83 97 07/10/22 07:30 99.0 F 07/10/22 07:46 82 93/50 L 07/10/22 07:44 78 96 07/10/22 07:39 91 H 96 07/10/22 07:34 86 96 07/10/22 07:32 87 124/68 07/10/22 07:29 72 94 07/10/22 07:24 73 95 07/10/22 07:19 76 97 07/10/22 07:17 78 112/64 07/10/22 07:14 79 96 07/10/22 07:09 82 96 07/10/22 07:04 77 95 07/10/22 07:01 68 98/56 L 07/10/22 06:59 68 94 07/10/22 06:54 72 94 07/10/22 06:49 71 94 07/10/22 06:47 68 108/63 07/10/22 06:44 73 95 07/10/22 06:39 84 97 07/10/22 06:34 79 96 07/10/22 06:32 78 119/66 07/10/22 06:30 18 07/10/22 06:30 18 07/10/22 06:29 71 95 07/10/22 06:24 71 96 07/10/22 06:19 78 96 07/10/22 06:15 64 106/59 L 07/10/22 06:14 79 96 07/10/22 06:00 18 07/10/22 06:00 18 07/10/22 06:09 81 96 07/10/22 06:04 83 98 07/10/22 06:03 78 105/52 L 07/10/22 06:01 77 73/51 L 07/10/22 05:30 18 07/10/22 05:30 18 07/10/22 05:59 73 96 07/10/22 05:54 73 94 07/10/22 05:49 76 95 07/10/22 05:46 76 91/49 L 07/10/22 05:44 74 95 07/10/22 05:39 74 95 07/10/22 05:34 75 95 07/10/22 05:32 72 92/55 L 07/10/22 05:29 75 95 07/10/22 05:24 75 95 07/10/22 05:19 76 95 07/10/22 05:17 71 90/52 L 07/10/22 05:14 71 95 07/10/22 05:00 18 07/10/22 05:00 98.4 F 18 07/10/22 05:09 71 95 07/10/22 05:04 73 95 07/10/22 05:01 76 106/51 L 07/10/22 04:59 85 96 07/10/22 04:54 74 96 07/10/22 04:49 82 96 07/10/22 04:45 80 99/54 L 07/10/22 04:44 86 96 07/10/22 04:39 90 96 07/10/22 04:34 92 H 96 07/10/22 04:32 82 98/55 L 07/10/22 04:30 18 07/10/22 04:30 18 07/10/22 04:29 79 95 07/10/22 04:24 82 95 07/10/22 04:19 72 95 07/10/22 04:17 75 94/55 L 07/10/22 04:14 78 95 07/10/22 04:09 78 95 07/10/22 04:04 73 95 07/10/22 04:00 18 07/10/22 04:00 18 07/10/22 04:02 75 92/53 L 07/10/22 03:59 79 95 07/10/22 03:54 78 95 07/10/22 03:49 78 95 07/10/22 03:44 81 95 07/10/22 03:45 80 87/50 L 07/10/22 03:39 75 95 07/10/22 03:34 76 95 07/10/22 03:30 18 07/10/22 03:30 18 07/10/22 03:32 78 88/52 L 07/10/22 03:29 79 94 07/10/22 03:24 85 95 07/10/22 03:19 82 95 07/10/22 03:14 81 95 07/10/22 03:15 77 91/54 L 07/10/22 03:09 80 95 07/10/22 03:04 80 94 07/10/22 03:02 80 92/51 L 07/10/22 02:59 84 94 07/10/22 02:54 81 95 07/10/22 02:49 81 95 07/10/22 02:46 81 98/53 L 07/10/22 02:44 86 95 07/10/22 02:39 86 96 07/10/22 02:34 85 95 07/10/22 02:30 98.6 F 85 18 103/53 L 07/10/22 02:29 82 96 07/10/22 02:24 102 H 97 07/10/22 02:19 79 95 07/10/22 02:16 83 99/49 L 07/10/22 02:14 88 95 07/10/22 02:09 79 94 07/10/22 02:04 81 95 07/10/22 02:00 20 07/10/22 02:00 20 07/10/22 02:01 77 95/53 L 07/10/22 01:59 79 95 07/10/22 01:54 75 95 07/10/22 01:49 79 94 07/10/22 01:45 75 90/51 L 07/10/22 01:44 76 95 07/10/22 01:39 74 95 07/10/22 01:34 78 95 07/10/22 01:30 76 18 95/49 L 07/10/22 01:29 75 96 07/10/22 01:24 78 96 07/10/22 01:19 76 97 07/10/22 01:16 75 102/53 L 07/10/22 01:14 82 99 07/10/22 01:09 79 98 07/10/22 01:04 93 H 99 07/10/22 00:59 91 H 99 07/10/22 00:54 83 99 07/10/22 00:49 96 H 99 07/10/22 00:30 18 07/10/22 00:30 18 07/10/22 00:46 76 100/55 L 07/10/22 00:44 92 H 98 07/10/22 00:39 111 H 99 07/10/22 00:34 99 07/10/22 00:34 96 H 07/10/22 00:34 93 H 111/55 L 07/10/22 00:29 88 98 07/10/22 00:24 88 99 07/10/22 00:19 91 H 96 07/10/22 00:14 104 H 99 07/10/22 00:09 85 97 07/10/22 00:04 92 H 98 07/09/22 23:45 18 07/09/22 23:45 18 07/09/22 23:50 18 07/09/22 23:50 18 07/09/22 23:55 20 07/09/22 23:55 20 07/10/22 00:03 97.7 F 07/10/22 00:00 18 07/10/22 00:00 18 07/10/22 00:02 101 H 99/56 L 07/09/22 23:59 88 96 07/09/22 23:58 82 96/50 L 07/09/22 23:56 91 H 100/47 L 07/09/22 23:54 105 H 98 07/09/22 23:49 95 H 97 07/09/22 23:48 99 H 105/58 L 07/09/22 23:46 92 H 114/59 L 07/09/22 23:44 96 H 104/55 L 96 07/09/22 23:42 113 H 110/59 L 07/09/22 23:40 110 H 18 123/62 07/09/22 23:39 113 H 97 07/09/22 23:38 97 H 129/67 07/09/22 23:36 106 H 125/69 07/09/22 23:35 104 H 125/70 07/09/22 23:34 103 H 96 07/09/22 23:29 105 H 97 07/09/22 23:30 105 H 18 146/71 H 07/09/22 23:24 110 H 97 07/09/22 23:19 91 H 97 07/09/22 23:14 97 H 96 07/09/22 23:09 95 H 96 07/09/22 23:04 96 H 92 07/09/22 21:54 18 07/09/22 21:54 18 07/09/22 20:30 18 07/09/22 20:30 18 07/09/22 19:03 18 07/09/22 19:03 98.4 F 18 07/09/22 19:04 84 132/77 Transfer of Care Handoff Completed per policy Notes Mental Status: alert / awake / arousable and participated in evaluation Nausea / Vomiting: adequately controlled Pain: adequately controlled Airway Patency, RR, SpO2: stable & adequate BP & HR: stable & adequate Hydration State: stable & adequate Neuraxial Anesthesia: was administered and sensory block is resolving Anesthetic Complications: no major complications apparent and Pt Satisfied with anesthetic care
[2022-07-10] MEDS: KETOROLAC 30 MG/ML VIAL IV PRN (19:20)
[2022-07-10] MEDS: OXYTOCIN 20 UNITS in LACTATED RINGER'S 1,000 ML IV SCH (19:20)
--- NOTE | 2022-07-10 20:26 | Operative Report (OR) ---
DATE OF SURGERY: 07/10/2022 SURGEON: Lucas Gutierrez MD FUSING MACHINE FEEDER: Dr. Haas. PROCEDURE: Primary section, low segment transverse. PREOPERATIVE DIAGNOSIS: Arrest of descent, the patient requesting section. POSTOPERATIVE DIAGNOSIS: Arrest of descent, the patient requesting section. FINDINGS: Live male. Apgars were 8 and 9. weight was 8 pounds 7 ounces. ESTIMATED BLOOD LOSS: 700 mL TOTAL FLUIDS: 1000 mL SPECIMENS: Placenta. DRAINS: Guevara. ANESTHESIA: Spinal. COMPLICATIONS: None. CLINICAL HISTORY: The patient is a 37-year-old female, 1, para 0 at 40 weeks and 1 day, who was admitted for induction of labor at term for suspected macrosomia of 4500 grams. The patient was given informed consent. Due to the fact that this is just an estimation, she decided to continue to labor and cervical ripening was accomplished within 2 days and then finally on the third day, she pro gressed to fully dilated. She pushed for about 2+ hours, descent of the head was at +1 station and d ue to maternal exhaustion and pain unrelieved by epidural, she requested a section. A diagn osis of arrest of descent and an elective section due to maternal request was then made. DESCRIPTION OF PROCEDURE: Under satisfactory spinal anesthesia, the patient was prepped and draped i n the usual sterile fashion. The timeout was called. Antibiotics were given. A low Pfannenstiel in cision was then made, carrying the incision down into the layers of the abdomen with successive layer s. Upon entering into the peritoneal cavity, the uterus was noted to be dextrorotated. The w as found to be in the mid pelvis with a lot of edema internally. A low segment transverse incision o ting the lower uterine segment was made. The incision was nicked. Amniotic fluid was clear. The inc ision was widened in the AP diameter. . The head was lifted out of the pelvis and then with the aid of fundal pressure, delivery of the vertex without difficulty and there was delayed cord clampin g and following clamping of the cord, delivery was accomplished without difficulty. Live male. Apga rs was 8 and 9 and weight was 8 pounds 7 ounces. Cord blood was obtained. Placenta was then s ubsequently delivered intact, submitted to pathology. The uterus was then exteriorized. Ring forcep s were then used to grab both angles. There was a slight extension on the left side. This was ident ified and using 0 Vicryl suture in a continuous interlocking fashion, first layer was closed. The se cond layer was imbricating without any difficulty. Tubes, ovaries bilaterally were found to be withi n normal limits. The contents of the uterus was placed back into the normal anatomical position. Th ere was a little bit of oozing from the bleeding site on the right angle and some Kris was used to cover this. The initial sponge, needle, and instrument count were found to be correct. The fascia w as reapproximated from both ends using 0 Vicryl suture in a continuous fashion. Subcuticular layer w as closed with 3-0 plain suture and the skin was reapproximated with chau. Clear urine was noted from the Guevara. Estimated blood loss 700 mL The final sponge, needle and instrument counts were foun d to be correct. The patient was placed supine on a stretcher. She was taken to recovery room in st able condition. Job ID: [id number]
[2022-07-10] MEDS: DOCUSATE SODIUM 100 MG CAP PO SCH (22:07)
[2022-07-10] MEDS: SIMETHICONE 80 MG CHEW PO SCH (22:07)
[2022-07-11] MEDS: KETOROLAC 30 MG/ML VIAL IV PRN ×2 (01:31→07:56)
[2022-07-11] MEDS: OXYTOCIN 20 UNITS in LACTATED RINGER'S 1,000 ML IV SCH (04:18)
[2022-07-11] MEDS ORDERED: CITRIC ACID/SODIUM CITRATE 15 ML UDC PO SCH (06:00)
[2022-07-11 06:49] LABS: Basophils # (auto) 0.05 K/uL (0-0.2); Basophils % (auto) 0.2 %; Eosinophils # (auto) 0.02 K/uL (0-0.50); Eosinophils % (auto) 0.1 %; Hematocrit (blood only) 30.6 % (37.0-47.0); Hemoglobin 10.4 g/dl (12.0-16.0); Immature Granulocytes # (auto) 0.16 K/uL (0.01-0.20); Immature Granulocytes % (auto) 0.8 %; Lymphocytes # (auto) 1.53 K/uL (1.2-3.4); Lymphocytes % (auto) 7.3 %; Mean Corpuscular Hemoglobin 31.1 pg (25.0-34.0); Mean Corpuscular Volume 91.6 fL (80.0-100.0); Mean Platelet Volume 10.6 fL (9.4-12.4); Monocytes # (auto) 1.19 K/uL (0.11-0.59); Monocytes % (auto) 5.7 %; Neutrophils % (auto) 85.9 %; Platelet Count 179 K/uL (130-400); RDW Coefficient of Variation 13.2 % (11.5-14.5); RDW Standard Deviation 44.1 fL (36.4-46.3); Red Blood Count 3.34 M/uL (4.20-5.40); White Blood Count 21.05 K/ul (4.8-10.8)
[2022-07-11] MEDS: FERROUS SULFATE 325 MG TAB PO SCH (07:54)
[2022-07-11] MEDS: DOCUSATE SODIUM 100 MG CAP PO SCH ×2 (07:55→21:13)
[2022-07-11] MEDS: SIMETHICONE 80 MG CHEW PO SCH ×4 (07:55→21:11)
[2022-07-11] MEDS: PRENATAL VITAMIN 1 TAB PO SCH (07:55)
[2022-07-11] MEDS ORDERED: IRON PO SCH (09:00)
[2022-07-11] MEDS ORDERED: NON-FORMULARY MEDICATION (Prenatal 1 TAB) PO SCH (09:00)
--- NOTE | 2022-07-11 09:53 | Obstetrical Progress Note ---
Date of Service July 11, 2022 Assessment & Plan Admission and Anticipated Discharge Date Admission Date: July 08, 2022 Subjective Postop check Patient is seen and examined Feels well, no complaints Pain is under control with meds No CP/ SOB/ Dizziness/ N&V/ VB/ Leg pain Not OOB yet Tolerating clears Breast feeding her baby Vital Signs Temp Pulse Resp BP Pulse Ox O2 Del Method 07/11/22 09:00 18 98 07/11/22 08:00 18 98 07/11/22 07:00 18 99 07/11/22 06:00 20 97 07/11/22 04:50 20 98 07/11/22 04:50 36.9 C 80 20 115/70 95 Room Air 07/11/22 04:00 18 95 07/11/22 03:00 18 97 07/11/22 02:00 20 97 07/11/22 01:00 20 96 07/11/22 00:00 18 96 07/10/22 23:10 20 95 07/10/22 23:10 37.2 C 82 20 129/82 95 Room Air 07/10/22 22:00 20 96 Lab Results 07/08/22 07/08/22 07/08/22 Range/Units 11:19 11:22 Unknown WBC 15.16 H (4.8-10.8) K/ul RBC 4.16 L (4.20-5.40) M/uL Hgb 12.9 (12.0-16.0) g/dl Hct 37.6 (37.0-47.0) % MCV 90.4 (80.0-100.0) fL MCH 31.0 (25.0-34.0) pg MCHC 34.3 (32.0-36.0) g/dL RDW Std Deviation 44.2 (36.4-46.3) fL RDW Coeff of Chapo 13.3 (11.5-14.5) % Plt Count 250 (130-400) K/uL MPV 10.4 (9.4-12.4) fL Immature Gran % (Auto) % Neut % (Auto) % Lymph % (Auto) % Door % (Auto) % Eos % (Auto) % Baso % (Auto) % Neut # (Auto) (1.40-6.50) K/uL Lymph # (Auto) (1.2-3.4) K/uL Door # (Auto) (0.11-0.59) K/uL Eos # (Auto) (0-0.50) K/uL Baso # (Auto) (0-0.2) K/uL Immature Gran # (Auto) (0.01-0.20) K/uL SARS-CoV-2, RNA, NAAT NEGATIVE (NEGATIVE) Blood Type A Positive Antibody Screen NEGATIVE 07/11/22 Range/Units 06:04 WBC 21.05 H (4.8-10.8) K/ul RBC 3.34 L (4.20-5.40) M/uL Hgb 10.4 L (12.0-16.0) g/dl Hct 30.6 L (37.0-47.0) % MCV 91.6 (80.0-100.0) fL MCH 31.1 (25.0-34.0) pg MCHC 34.0 (32.0-36.0) g/dL RDW Std Deviation 44.1 (36.4-46.3) fL RDW Coeff of Chapo 13.2 (11.5-14.5) % Plt Count 179 (130-400) K/uL MPV 10.6 (9.4-12.4) fL Immature Gran % (Auto) 0.8 % Neut % (Auto) 85.9 % Lymph % (Auto) 7.3 % Door % (Auto) 5.7 % Eos % (Auto) 0.1 % Baso % (Auto) 0.2 % Neut # (Auto) 18.10 H (1.40-6.50) K/uL Lymph # (Auto) 1.53 (1.2-3.4) K/uL Door # (Auto) 1.19 H (0.11-0.59) K/uL Eos # (Auto) 0.02 (0-0.50) K/uL Baso # (Auto) 0.05 (0-0.2) K/uL Immature Gran # (Auto) 0.16 (0.01-0.20) K/uL SARS-CoV-2, RNA, NAAT (NEGATIVE) Blood Type Antibody Screen Intake & Output 07/10/22 07/11/22 07/11/22 22:59 06:59 14:59 Intake Total 81.9 / 1305.5 1002 / 1305.5 Output Total 1050 / 2700 650 / 2700 Balance -968.1 / -1394.5 352 / -1394.5 Intake: IV 81.9 / 1305.5 1002 / 1305.5 Oxytocin 20 units In Lactated 1002 / 1002 Ringer's 1,000 ml @ 125 mls/hr IV .Q8H1M VALERIA Rx#:[id number] Oxytocin 30 units In 500 ml @ 0 81.9 / 91.5 UNITS/HR IV .Q0M PRN Rx#: [id number] Output: Urine Amount (Catheter) 1050 / 2700 650 / 2700 Coffman/Indwelling 1050 / 2550 650 / 2550 PE: General: Alert, orientedx3, NAD CVS: S1S2 RRR Lungs: CTAB Abd: soft, NT, ND, BS+, Fundus firm Dressing/ Incision C/D/I No VB Ext: NT, no edema, SCD's on AP: 37 yo female s/p Primary Csection , pod#1 VSS Afebrile doing well Continue to routine postop care Encourage PO intake, may ambulate D/C coffamn Results & Data Vital Signs (Past 12 Hours) Vital Signs Temp Pulse Resp BP Pulse Ox O2 Del Method 07/11/22 09:00 18 98 07/11/22 08:00 18 98 07/11/22 07:00 18 99 07/11/22 06:00 20 97 07/11/22 04:50 20 98 07/11/22 04:50 36.9 C 80 20 115/70 95 Room Air 07/11/22 04:00 18 95 07/11/22 03:00 18 97 07/11/22 02:00 20 97 07/11/22 01:00 20 96 07/11/22 00:00 18 96 07/10/22 23:10 20 95 07/10/22 23:10 37.2 C 82 20 129/82 95 Room Air 07/10/22 22:00 20 96
[2022-07-11] MEDS ORDERED: MEPERIDINE HCL 50 MG/ML CARP IV PRN (11:51)
[2022-07-11] MEDS ORDERED: PROMETHAZINE HCL 25 MG in SODIUM CHLORIDE 0.9% 50 ML IV PRN (11:51)
[2022-07-11] MEDS ORDERED: KETOROLAC 30 MG/ML VIAL IV PRN (11:51)
[2022-07-11] MEDS ORDERED: diphenhydrAMINE 50 MG/ML VIAL IV PRN (11:51)
[2022-07-11] MEDS ORDERED: diphenhydrAMINE Capsule 25 MG CAP PO PRN (11:51)
[2022-07-11] MEDS ORDERED: ONDANSETRON INJ 2 MG/ML 2 ML VIAL IV PRN (11:51)
[2022-07-11] MEDS: oxyCODONE/ACETAMINOPHEN 5mg/325mg TAB PO PRN ×3 (12:13→21:12)
[2022-07-11] MEDS: IBUPROFEN 600 MG TAB PO PRN ×3 (12:14→21:12)
[2022-07-11] MEDS ORDERED: bisacodyL 5 MG TABEC PO SCH (20:00)
[2022-07-12] MEDS: IBUPROFEN 600 MG TAB PO PRN ×4 (01:02→19:58)
[2022-07-12] MEDS: oxyCODONE/ACETAMINOPHEN 5mg/325mg TAB PO PRN ×5 (01:02→21:59)
[2022-07-12 06:37] LABS: Basophils # (auto) 0.07 K/uL (0-0.2); Basophils % (auto) 0.3 %; Eosinophils # (auto) 0.16 K/uL (0-0.50); Eosinophils % (auto) 0.8 %; Hematocrit (blood only) 27.8 % (37.0-47.0); Hemoglobin 9.6 g/dl (12.0-16.0); Lymphocytes # (auto) 1.34 K/uL (1.2-3.4); Lymphocytes % (auto) 6.5 %; Mean Corpuscular Hemoglobin 31.8 pg (25.0-34.0); Mean Corpuscular Hgb Conc 34.5 g/dL (32.0-36.0); Mean Corpuscular Volume 92.1 fL (80.0-100.0); Mean Platelet Volume 10.3 fL (9.4-12.4); Monocytes # (auto) 1.34 K/uL (0.11-0.59); Monocytes % (auto) 6.5 %; Neutrophils # (auto) 17.66 K/uL (1.40-6.50); Neutrophils % (auto) 84.9 %; Platelet Count 163 K/uL (130-400); RDW Coefficient of Variation 13.5 % (11.5-14.5); Red Blood Count 3.02 M/uL (4.20-5.40); White Blood Count 20.77 K/ul (4.8-10.8)
[2022-07-12] MEDS: PRENATAL VITAMIN 1 TAB PO SCH (08:05)
[2022-07-12] MEDS: DOCUSATE SODIUM 100 MG CAP PO SCH ×2 (08:05→19:59)
[2022-07-12] MEDS: FERROUS SULFATE 325 MG TAB PO SCH (08:05)
[2022-07-12] MEDS: SIMETHICONE 80 MG CHEW PO SCH ×4 (08:05→19:59)
--- NOTE | 2022-07-12 08:23 | Obstetrical Progress Note ---
Date of Service July 12, 2022 Assessment & Plan (1) Normal course: Continue scheduled pain medication, will give IV Toradol if pain is uncontrolled/or needed for breakthrough Continue care at this time Plan to discharge home tomorrow Subjective Ambulation: ambulating normally Voiding: no voiding problems Passing Gas:: Yes Diet Tolerance:: regular diet Lochia:: Moderate Feeding Type:: breast feeding Current Pain Level(1-10): 6 Patient was sitting in chair at this time, and was taking her morning pain medication. States pain has been significant, but feels like it is well controlled with p.o. medication at this time. Declines any higher dose of pain medication. Wants to stay here in the chair until she feels better after taking her pain medication. Wants to go home tomorrow Physical Exam Constitutional WD/WN, vitals as above Respiratory normal respiratory effort, lungs clear to auscultation Cardiovascular RRR, no murmur, no edema Gastrointestinal (Abdomen) normal bowel sounds, soft, nontender, no hepatosplenomegaly Incision: Clean dry intact and well-healing, chau in place Results & Data Vital Signs (Past 12 Hours) Vital Signs Temp Pulse Resp BP Pulse Ox O2 Del Method 07/11/22 23:26 36.7 C 91 H 18 117/72 95 Room Air Laboratory Results Laboratory Results WBC 20.77 K/ul (4.8-10.8) H 07/12/22 06:13 RBC 3.02 M/uL (4.20-5.40) L 07/12/22 06:13 Hgb 9.6 g/dl (12.0-16.0) L 07/12/22 06:13 Hct 27.8 % (37.0-47.0) L 07/12/22 06:13 MCV 92.1 fL (80.0-100.0) 07/12/22 06:13 MCH 31.8 pg (25.0-34.0) 07/12/22 06:13 MCHC 34.5 g/dL (32.0-36.0) 07/12/22 06:13 RDW Std Deviation 45.0 fL (36.4-46.3) 07/12/22 06:13 RDW Coeff of Chapo 13.5 % (11.5-14.5) 07/12/22 06:13 Plt Count 163 K/uL (130-400) 07/12/22 06:13 MPV 10.3 fL (9.4-12.4) 07/12/22 06:13 Immature Gran % (Auto) 1.0 % 07/12/22 06:13 Neut % (Auto) 84.9 % 07/12/22 06:13 Lymph % (Auto) 6.5 % 07/12/22 06:13 [place] % (Auto) 6.5 % 07/12/22 06:13 Eos % (Auto) 0.8 % 07/12/22 06:13 Baso % (Auto) 0.3 % 07/12/22 06:13 Neut # (Auto) 17.66 K/uL (1.40-6.50) H 07/12/22 06:13 Lymph # (Auto) 1.34 K/uL (1.2-3.4) 07/12/22 06:13 [place] # (Auto) 1.34 K/uL (0.11-0.59) H 07/12/22 06:13 Eos # (Auto) 0.16 K/uL (0-0.50) 07/12/22 06:13 Baso # (Auto) 0.07 K/uL (0-0.2) 07/12/22 06:13 Immature Gran # (Auto) 0.20 K/uL (0.01-0.20) 07/12/22 06:13 SARS-CoV-2, RNA, NAAT NEGATIVE (NEGATIVE) 07/08/22 Unknown Blood Type A Positive 07/08/22 11:22 Antibody Screen NEGATIVE 07/08/22 11:22 Impressions Obstetrics Ultrasound 07/08/22 09:37 US OB limited CLINICAL HISTORY: please estimate EFW COMPARISON STUDY: No previous studies for comparison. TECHNIQUE: Transabdominal sonography of the pelvis was performed. FINDINGS: Please note that a dedicated anatomical survey was not performed. Single viable intrauterine gestation is noted. Cephalic presentation. Amniotic fluid index is 9.14 cm. heart rate is normal at 150 bpm. Placenta is located anteriorly. Biparietal diameter measures 9.88 cm which corresponds to an estimated gestational age of 40 weeks and 4 days. Head circumference measures 36.20 cm. Femur length measures 7.84 cm which corresponds to estimated gestational age of 40 weeks and 1 day. Abdominal circumference measures 38.43 cm. Estimated weight is 9 pounds and 15 ounces +/- 1 lb 8 oz or 4503 g. IMPRESSION: 1. Single viable intrauterine gestation. Normal heart rate. 2. Estimated weight of 9 pounds and 15 ounces or 4503 g. 3. Amniotic fluid index of 9.14 cm. ACT 112: Negative or not required by law. Electronically signed by: Theo Coronel M.D. 07/08/2022 10:49 AM
[2022-07-12] MEDS ORDERED: bisacodyL 10 MG SUPP PR PRN (18:02)
[2022-07-13] MEDS: IBUPROFEN 600 MG TAB PO PRN ×2 (00:29→05:55)
[2022-07-13] MEDS: oxyCODONE/ACETAMINOPHEN 5mg/325mg TAB PO PRN ×3 (03:30→12:47)
[2022-07-13] MEDS: DOCUSATE SODIUM 100 MG CAP PO SCH (07:44)
[2022-07-13] MEDS: FERROUS SULFATE 325 MG TAB PO SCH (07:44)
[2022-07-13] MEDS: PRENATAL VITAMIN 1 TAB PO SCH (07:44)
[2022-07-13] MEDS: SIMETHICONE 80 MG CHEW PO SCH (07:44)
[2022-07-13] MEDS ORDERED: MAGNESIUM HYDROXIDE SUSP 30 ML UDC PO ONE (08:17)
[2022-07-13 08:25] LABS: Basophils # (auto) 0.04 K/uL (0-0.2); Basophils % (auto) 0.2 %; Eosinophils # (auto) 0.15 K/uL (0-0.50); Eosinophils % (auto) 0.9 %; Hematocrit (blood only) 28.2 % (37.0-47.0); Hemoglobin 9.5 g/dl (12.0-16.0); Immature Granulocytes # (auto) 0.18 K/uL (0.01-0.20); Immature Granulocytes % (auto) 1.1 %; Lymphocytes # (auto) 1.26 K/uL (1.2-3.4); Lymphocytes % (auto) 7.4 %; Mean Corpuscular Hemoglobin 31.4 pg (25.0-34.0); Mean Corpuscular Hgb Conc 33.7 g/dL (32.0-36.0); Mean Corpuscular Volume 93.1 fL (80.0-100.0); Mean Platelet Volume 9.8 fL (9.4-12.4); Monocytes # (auto) 0.97 K/uL (0.11-0.59); Monocytes % (auto) 5.7 %; Neutrophils # (auto) 14.35 K/uL (1.40-6.50); Neutrophils % (auto) 84.7 %; Platelet Count 197 K/uL (130-400); RDW Coefficient of Variation 13.6 % (11.5-14.5); RDW Standard Deviation 46.1 fL (36.4-46.3); Red Blood Count 3.03 M/uL (4.20-5.40); White Blood Count 16.95 K/ul (4.8-10.8)
--- NOTE | 2022-07-13 08:27 | Obstetrical Progress Note ---
Date of Service July 13, 2022 Assessment & Plan Admission and Anticipated Discharge Date Admission Date: July 08, 2022 Subjective Patient is seen and examined. She feels well, no complaints other than soreness. Pain is under control with oral meds. Ambulating without dizziness Voiding without difficulty Tolerating regular diet with out N&V Flatus + BM + on 07/11, none since then Bleeding is minimal No fever/ chills/ CP/ SOB/ N&V/ Leg pain Breast feeding without problems Vital Signs Temp Pulse Resp BP BP Pulse Ox O2 Del Method 07/12/22 20:14 36.8 C 110 H 18 140/76 98 Room Air 07/12/22 14:30 37.0 C 128 H 19 146/80 H 99 Room Air Lab Results 07/08/22 07/08/22 07/08/22 Range/Units 11:19 11:22 Unknown WBC 15.16 H (4.8-10.8) K/ul RBC 4.16 L (4.20-5.40) M/uL Hgb 12.9 (12.0-16.0) g/dl Hct 37.6 (37.0-47.0) % MCV 90.4 (80.0-100.0) fL MCH 31.0 (25.0-34.0) pg MCHC 34.3 (32.0-36.0) g/dL RDW Std Deviation 44.2 (36.4-46.3) fL RDW Coeff of Chapo 13.3 (11.5-14.5) % Plt Count 250 (130-400) K/uL MPV 10.4 (9.4-12.4) fL Immature Gran % (Auto) % Neut % (Auto) % Lymph % (Auto) % [place] % (Auto) % Eos % (Auto) % Baso % (Auto) % Neut # (Auto) (1.40-6.50) K/uL Lymph # (Auto) (1.2-3.4) K/uL [place] # (Auto) (0.11-0.59) K/uL Eos # (Auto) (0-0.50) K/uL Baso # (Auto) (0-0.2) K/uL Immature Gran # (Auto) (0.01-0.20) K/uL SARS-CoV-2, RNA, NAAT NEGATIVE (NEGATIVE) Blood Type A Positive Antibody Screen NEGATIVE 07/11/22 07/12/22 07/13/22 Range/Units 06:04 06:13 08:16 WBC 21.05 H 20.77 H 16.95 H (4.8-10.8) K/ul RBC 3.34 L 3.02 L 3.03 L (4.20-5.40) M/uL Hgb 10.4 L 9.6 L 9.5 L (12.0-16.0) g/dl Hct 30.6 L 27.8 L 28.2 L (37.0-47.0) % MCV 91.6 92.1 93.1 (80.0-100.0) fL MCH 31.1 31.8 31.4 (25.0-34.0) pg MCHC 34.0 34.5 33.7 (32.0-36.0) g/dL RDW Std Deviation 44.1 45.0 46.1 (36.4-46.3) fL RDW Coeff of Chapo 13.2 13.5 13.6 (11.5-14.5) % Plt Count 179 163 197 (130-400) K/uL MPV 10.6 10.3 9.8 (9.4-12.4) fL Immature Gran % (Auto) 0.8 1.0 1.1 % Neut % (Auto) 85.9 84.9 84.7 % Lymph % (Auto) 7.3 6.5 7.4 % [place] % (Auto) 5.7 6.5 5.7 % Eos % (Auto) 0.1 0.8 0.9 % Baso % (Auto) 0.2 0.3 0.2 % Neut # (Auto) 18.10 H 17.66 H 14.35 H (1.40-6.50) K/uL Lymph # (Auto) 1.53 1.34 1.26 (1.2-3.4) K/uL [place] # (Auto) 1.19 H 1.34 H 0.97 H (0.11-0.59) K/uL Eos # (Auto) 0.02 0.16 0.15 (0-0.50) K/uL Baso # (Auto) 0.05 0.07 0.04 (0-0.2) K/uL Immature Gran # (Auto) 0.16 0.20 0.18 (0.01-0.20) K/uL SARS-CoV-2, RNA, NAAT (NEGATIVE) Blood Type Antibody Screen PE: General: Alert, orientedx3, NAD CVS: S1S2 RRR Lungs; CTAB Abd: soft, NT, ND, BS+, fundus firm, below Umbilicus Incision: Clean, dry, intact Perineum intact, Lochia rubra minimal Ext; NT, 2+/ 2+ edema, Homans sign neg/neg AP: 37 yo s/p C Section, pod# 3 VSS Afebrile doing well Continue routine postop care Encourage ambulation, PO intake All questions were answered D/C home , f/u in office
== END 2022-07-13 12:55 | disposition home or self-care (01) | DRG 788 ==
LOC: 4S1 07:46 → 4E2 07-10 20:34
DX: O75.81 Maternal exhaustion complicating labor and delivery; O28.3 Abnormal ultrasonic finding on antenatal screening of mother; O36.63X0 Maternal care for excessive fetal growth, third trimester, not applicable or unspecified; O99.824 Streptococcus B carrier state complicating childbirth; Z3A.39 39 weeks gestation of pregnancy; Z88.2 Allergy status to sulfonamides; Z79.899 Other long term (current) drug therapy; Z37.0 Single live birth; O62.0 Primary inadequate contractions

== ENCOUNTER 2022-07-19 09:50 | Inpatient (IN) ==
[2022-07-19] MEDS ORDERED: SODIUM CHLORIDE 0.9% 1000ML 1,000 ML IV SCH (11:00)
[2022-07-19] MEDS ORDERED: HYDROmorphone INJ 1 MG/ML SYRINGE IV STA ×3 (11:01→14:12)
[2022-07-19] MEDS ORDERED: ONDANSETRON INJ 2 MG/ML 2 ML VIAL IV STA (11:16)
[2022-07-19 11:21] LABS: Basophils # (auto) 0.08 K/uL (0-0.2); Basophils % (auto) 0.4 %; Eosinophils # (auto) 0.14 K/uL (0-0.50); Eosinophils % (auto) 0.6 %; Hematocrit (blood only) 28.2 % (37.0-47.0); Hemoglobin 9.4 g/dl (12.0-16.0); Immature Granulocytes # (auto) 1.05 K/uL (0.01-0.20); Immature Granulocytes % (auto) 4.7 %; Lymphocytes # (auto) 1.31 K/uL (1.2-3.4); Lymphocytes % (auto) 5.9 %; Mean Corpuscular Hgb Conc 33.3 g/dL (32.0-36.0); Mean Corpuscular Volume 93.1 fL (80.0-100.0); Mean Platelet Volume 8.9 fL (9.4-12.4); Monocytes # (auto) 1.08 K/uL (0.11-0.59); Monocytes % (auto) 4.9 %; Neutrophils # (auto) 18.59 K/uL (1.40-6.50); Neutrophils % (auto) 83.5 %; Platelet Count 567 K/uL (130-400); RDW Standard Deviation 47.9 fL (36.4-46.3); Red Blood Count 3.03 M/uL (4.20-5.40); White Blood Count 22.25 K/ul (4.8-10.8)
[2022-07-19 11:27] LABS: iSTAT Creatinine 0.6 mg/dl (0.6-1.3); iSTAT Hemoglobin 9.2 g/dl (12.0-16.0); iSTAT Ionized Calcium 1.05 mmol/l (1.12-1.32); iSTAT Potassium 3.2 mmol/L (3.3-5.0)
[2022-07-19 11:28] LABS: Albumin Level 2.7 gm/dl (3.4-5.0); BUN Creatinine Ratio 17.7 (10-20); Bilirubin Direct 0.1 mg/dl (0-0.2); Bilirubin,Total 0.5 mg/dl (0.2-1.0); Calcium 8.3 mg/dl (8.6-10.3); Creatinine Clr Calc Pharmacy 140.6 ml/min; Est GFR (African American) 133.5 ml/min; Est GFR (Non-African American) 115.2 ml/min; Magnesium 1.8 mg/dl (1.7-2.4); Potassium 3.2 mmol/L (3.5-5.1); Total Protein 6.2 gm/dl (6.0-8.3)
[2022-07-19] MEDS ORDERED: OPTIRAY 350 100ml IV ONE (11:33)
[2022-07-19 11:34] LABS: Troponin I High Sensitivity 32.6 pg/ml (0-14)
[2022-07-19 11:41] LABS: Appearance Urine Turbid (Clear); Bacteria Urine Automated Negative (Negative); Bilirubin Urine Negative (Negative); Blood Urine 3+ (Negative); Color Urine Dark Yellow; Epithelial Cell Urine Auto 20-30 /lpf (0-5); Glucose Urine UA Negative (Negative); Ketones Urine 4+ (Negative); Leukocyte Esterase Urine 2+ (Negative); Nitrite Urine Negative (Negative); Protein Urine 2+ (Negative); RBC Urine Automated >30 /hpf (0-4); Urobilinogen Urine Negative (Negative); WBC Urine Automated >30 /hpf (0-5)
[2022-07-19 11:55] LABS: INR 1.1 (0.9-1.1); Partial Thromboplastin Ratio 1.1; Partial Thromboplastin Time 30.8 Seconds (21.0-31.0); Prothrombin Time 11.4 Seconds (9.0-12.0)
--- NOTE | 2022-07-19 12:16 | CT Scan Report ---
CT abd pelvis IV con only CLINICAL HISTORY: abd pain s/p c section erythma and warmth over inc. was performed 07/11/19 TECHNIQUE: Helical axial images of the abdomen and pelvis were obtained and displayed. Automated dose lowering techniques and/or adjustment according to patient size were utilized for this exam. This e xam was performed with intravenous contrast. CT DOSE: 796.30 mGy.cm COMPARISON: None available at the time of this dictation. FINDINGS: Lower chest: Bibasilar atelectasis versus scarring is seen. Liver: Unremarkable. No focal lesions are seen. Gallbladder and biliary tree: No calcified gallstones. Normal caliber wall. No intra- or extrahepatic biliary ductal dilation. Pancreas: Unremarkable, no focal lesions. Spleen: Unremarkable. Adrenals: Unremarkable. Kidneys and ureters: Unremarkable. Bladder: Limited evaluation due to underdistention. Reproductive organs: Hyperemic appearance of the uterus compatible with recent state. Bowel: Prominent abdominal fluid is seen with development of some enhancing asher. Lymph nodes Retroperitoneal: Unremarkable. Pelvic: Unremarkable. Mesenteric: Unremarkable. Peritoneum: Normal. Vessels: Unremarkable. Abdominal wall: Incision is seen in the lower abdomen compatible with recent . A small amoun t of subcutaneous edema is seen without encapsulated drainable fluid collection. Bones: Unremarkable. IMPRESSION: 1. There is a moderate amount of abdominal fluid with some enhancing asher suggesting development of partial encapsulation. Findings are concerning for peritonitis/abscess formation in this patient wit h leukocytosis. 2. Expected postsurgical fat stranding and skin thickening at the site of the incision. No evidence of drainable subcutaneous collection. 3. Expected appearance of the uterus. ACT 112: Negative or not required by law. Electronically signed by: Toan Mccall M.D. 07/19/2022 12:15 PM
--- NOTE | 2022-07-19 12:17 | XRay Report ---
XR chest 1V portable CLINICAL HISTORY: Sepsis TECHNIQUE: Single frontal radiograph of the chest was obtained. Comparison: None available at the time of this dictation. FINDINGS: No lines and tubes are seen. The cardiomediastinal silhouette is normal. The lungs are clear. No evid ence of pleural effusion or pneumothorax. IMPRESSION: No acute chest disease. ACT 112: Negative or not required by law. Electronically signed by: Toan Mccall M.D. 07/19/2022 12:16 PM
[2022-07-19] MEDS ORDERED: VANCOMYCIN CONSULT ACTIVE PRN ×2 (12:24→21:14)
[2022-07-19] MEDS ORDERED: cefTRIAXone SODIUM 1 GM ADDVIAL IV STA (12:24)
[2022-07-19] MEDS ORDERED: VANCOMYCIN HCL 2,250 MG in SODIUM CHLORIDE 0.9% 500 ML IV ONE (12:24)
[2022-07-19] MEDS ORDERED: cefTRIAXone SODIUM 2,000 MG in DEXTROSE 5% 50 ML IV STA (12:38)
[2022-07-19] MEDS ORDERED: POTASSIUM CHLORIDE / WTR 10 MEQ/100 ML PLCT IV ONE (13:35)
--- NOTE | 2022-07-19 13:49 | Emergency Department Note ---
History of Present Illness General Chief complaint: Pelvic Pain Stated complaint: PAIN, POST Time Seen by Provider: 07/19/22 10:37 History of Present Illness Provider complaint: abdominal pain Maximum Pain Intensity: 10 37-year-old G1, P1 presents emergency department for abdominal pain. Patient had a done by [facility] CORRUGATOR OPERATOR Dr. Morales on 10/10/2021. She reports increasing abdominal pain. She reports some discharge from the incision area. She reports some subjective fevers. Patient has been taking Tylenol for pain. She reports she had blood work done in [facility] which showed an elevated white blood cell count. Patient reports she has been taking Tylenol for the pain. Home Medications Medication Instructions Recorded Confirmed Type Iron (ferrous sulfate) 1 tab PO DAILY 07/08/22 07/08/22 History 1 tab PO DAILY 07/08/22 07/08/22 History breast pump #1 ea 07/12/22 Rx oxycodone-acetaminophen 5 mg-325 1 tab PO Q4H #20 tabs 07/13/22 Rx mg tablet (Percocet) vits no.124-ferrous fum 1 tab PO DAILY@08 #90 tabs 07/13/22 Rx 27 mg iron-folic acid 800 mcg tablet ( Vitamin) cephalexin 500 mg capsule 500 mg PO BID 07/19/22 History ibuprofen 600 mg tablet 600 mg PO Q4H PRN Pain 07/19/22 07/19/22 History Allergies Allergy/AdvReac Type Severity Reaction Status Date / Time Sulfa (Sulfonamide Allergy Nausea Verified 07/08/22 08:16 Antibiotics) Past Med/Surg History Medical History Endometriosis Normal colonoscopy to rule out rectal pain-2009. Surgical History H/O oral surgery wisdom teeth removal in 2011. History of delivery Family History Other Hypothyroidism Myocardial infarction Social History Smoking Status: Never smoker Hx Alcohol Use: Yes Hx Substance Use: No Preferred Language: Khmer Log Buyer Required: No Beliefs That Will Affect Care: None marital status: Current Living Situation: Spouse Feels Safe at Home: Yes Physical Exam Vital Signs Vital Signs - 24 hr 07/19/22 09:54 07/19/22 10:30 07/19/22 11:10 Temperature 37.1 C Temperature Source Temporal Artery Scan Pulse Rate 115 H Pulse Rate [Finger] 95 H Pulse Rate from SpO2 Sensor Pulse Rhythm [Finger] Pulse Strength [Finger] Respiratory Rate 18 15 Respiratory Effort / Characteristics Non-Labored Spontaneous Respiratory Depth Normal Respiratory Pattern Regular Blood Pressure 142/70 H Blood Pressure [Left Arm] 124/60 Blood Pressure Mean 94 Blood Pressure Mean [Left Arm] 81 Blood Pressure Position Sitting Pulse Oximetry 97 96 98 Oxygen Delivery Method Room Air Room Air Room Air Sepsis Recent Fever Within 48 Hours No Sepsis New/Unexplained Change in Mental Status No Sepsis Action Taken by Nursing No Action Required 07/19/22 12:16 07/19/22 13:13 07/19/22 14:36 Temperature Temperature Source Pulse Rate 87 95 H Pulse Rate [Finger] 89 Pulse Rate from SpO2 Sensor Pulse Rhythm [Finger] Regular Pulse Strength [Finger] Normal Respiratory Rate 15 15 Respiratory Effort / Characteristics Non-Labored Spontaneous Respiratory Depth Normal Respiratory Pattern Blood Pressure Blood Pressure [Left Arm] 132/64 Blood Pressure Mean Blood Pressure Mean [Left Arm] 86 Blood Pressure Position Pulse Oximetry 94 96 Oxygen Delivery Method Room Air Room Air Sepsis Recent Fever Within 48 Hours Sepsis New/Unexplained Change in Mental Status Sepsis Action Taken by Nursing 07/19/22 13:12 07/19/22 13:30 07/19/22 13:30 Temperature Temperature Source Pulse Rate 83 90 Pulse Rate [Finger] Pulse Rate from SpO2 Sensor 84 88 Pulse Rhythm [Finger] Pulse Strength [Finger] Respiratory Rate 17 17 Respiratory Effort / Characteristics Respiratory Depth Respiratory Pattern Blood Pressure 126/68 Blood Pressure [Left Arm] Blood Pressure Mean 87 Blood Pressure Mean [Left Arm] Blood Pressure Position Pulse Oximetry 96 97 Oxygen Delivery Method Sepsis Recent Fever Within 48 Hours Sepsis New/Unexplained Change in Mental Status Sepsis Action Taken by Nursing 07/19/22 14:00 07/19/22 14:00 07/19/22 14:30 Temperature Temperature Source Pulse Rate 106 H Pulse Rate [Finger] Pulse Rate from SpO2 Sensor 105 H Pulse Rhythm [Finger] Pulse Strength [Finger] Respiratory Rate 24 Respiratory Effort / Characteristics Respiratory Depth Respiratory Pattern Blood Pressure 118/70 131/69 Blood Pressure [Left Arm] Blood Pressure Mean 86 89 Blood Pressure Mean [Left Arm] Blood Pressure Position Pulse Oximetry 96 Oxygen Delivery Method Sepsis Recent Fever Within 48 Hours Sepsis New/Unexplained Change in Mental Status Sepsis Action Taken by Nursing 07/19/22 14:30 07/19/22 15:00 07/19/22 15:00 Temperature Temperature Source Pulse Rate 98 H 92 H Pulse Rate [Finger] Pulse Rate from SpO2 Sensor 98 H 93 H Pulse Rhythm [Finger] Pulse Strength [Finger] Respiratory Rate 16 20 Respiratory Effort / Characteristics Respiratory Depth Respiratory Pattern Blood Pressure 126/68 Blood Pressure [Left Arm] Blood Pressure Mean 87 Blood Pressure Mean [Left Arm] Blood Pressure Position Pulse Oximetry 97 96 Oxygen Delivery Method Sepsis Recent Fever Within 48 Hours Sepsis New/Unexplained Change in Mental Status Sepsis Action Taken by Nursing Physical Exam NECK: Normal range of motion. Neck supple. No JVD present. No spinous process tenderness present. No tracheal deviation and normal range of motion present. CV: Tachycardic rate, regular rhythm, normal heart sounds and intact distal pulses. There is no peripheral edema. Palpable radial pulses bue. PULM/CHEST: Effort normal and breath sounds normal. No respiratory distress. No stridor. She has no wheezes. She has no rales. ABD: Diffuse pain on palpation of the abdomen. Surgical chau are in place. There is surrounding erythema and warmth from her surgical chau throughout her lower abdomen. No discharge from the surgical chau or bleeding from the incision site. MUSC/SKEL: Normal range of motion. There is no peripheral edema, tenderness or deformity. LYMPH: No cervical adenopathy. NEURO: She is alert and oriented to person, place, and time. She has normal strength. No cranial nerve deficit or sensory deficit. Coordination and gait normal. GCS eye subscore is 4. GCS verbal subscore is 5. GCS motor subscore is 6. Cerebellar tests wnl. SKIN: Skin is warm and dry. She is not diaphoretic. PSYCH: She has a normal mood and affect. Behavior is normal. Judgment and thought content normal. Course Course 1037: The patient was evaluated in room B4. A complete history and physical exam was performed Cardiac monitoring: An order was placed for continuous cardiac monitoring. The monitor shows a rate of 90 with sinus rhythm interpreted by me 1240: Vital signs stable. Labs show leukocytosis 22.25 up from 16.956 days ago. Hemoglobin 9.4. Neutrophils 18.59. Potassium 3.2. Lactic acid within normal limits. Troponin elevated at 32.6. Alkaline phosphatase 201. Urinalysis is contaminated sample but negative for bacteria. Tylenol level within normal limits. CT imaging shows moderate amount of abdominal fluid with some enhancement of wall suggesting development of a partial encapsulation concerning for peritonitis/abscess formation with patient leukocytosis. Expected postsurgical fat stranding and skin thickening at site of incision no drainable subcutaneous collection. Rocephin and vancomycin started for the patient. Expected appearance of the uterus. Discussed the case with CORRUGATOR OPERATOR [facility] on-call Dr. Zamora. She states she will be down to evaluate the patient for admission. 1357: CORRUGATOR OPERATOR [place] on-call Dr. Zamora evaluating patient Administered Medications Discontinued Medications Hydromorphone HCl (Hydromorphone Inj 1 Mg/Ml Syringe) 1 mg IV NOW STA Stop: 07/19/22 11:02 Last Admin: 07/19/22 11:19 Dose: 1 mg Documented By: VALENTIN Hydromorphone HCl (Hydromorphone Inj 1 Mg/Ml Syringe) 1 mg IV NOW STA Stop: 07/19/22 14:08 Last Admin: 07/19/22 14:10 Dose: 1 mg Documented By: VALENTIN Sodium Chloride (Nss 1000ml) 1,000 mls @ 999 mls/hr IV .Q1H1M VALERIA Stop: 07/19/22 12:00 Last Infusion: 07/19/22 12:33 Dose: 0 mls/hr Documented By: Admin: 07/19/22 11:31 Dose: 999 mls/hr Documented By: VALENTIN Vancomycin HCl 2,250 mg/ (Sodium Chloride) 545 mls @ 200 mls/hr IV NOW ONE Stop: 07/19/22 15:07 Last Admin: 07/19/22 13:26 Dose: 200 mls/hr Documented By: VALENTIN Ceftriaxone Sodium 2,000 mg/ (Dextrose) 70 mls @ 140 mls/hr IV NOW STA Stop: 07/19/22 13:07 Last Infusion: 07/19/22 14:05 Dose: 0 mls/hr Documented By: Admin: 07/19/22 13:26 Dose: 140 mls/hr Documented By: VALENTIN Potassium Chloride (K Lewis / Wtr) 10 meq in 100 mls @ 100 mls/hr IV ONE ONE; Protocol Stop: 07/19/22 14:34 Last Infusion: 07/19/22 15:10 Dose: 0 mls/hr Documented By: Admin: 07/19/22 14:10 Dose: 100 mls/hr Documented By: VALENTIN Ioversol (Optiray 350 100ml) 89 ml IV ONCE ONE Stop: 07/19/22 11:34 Last Admin: 07/19/22 11:33 Dose: 89 ml Documented By: CORA Ondansetron HCl (Ondansetron Inj 2 Mg/Ml 2 Ml Vial) 4 mg IV NOW STA Stop: 07/19/22 11:17 Last Admin: 07/19/22 11:18 Dose: 4 mg Documented By: VALENTIN Medical Decision Making Medical Records Attestation: I reviewed the patient's medical records. External medical records were reviewed that were obtained by me and skilled nursing case manager from the [employer] system. The patient's CORRUGATOR OPERATOR DrEfren Humphreys 2D [place] ago on July 17, 2022. At that time the patient had a leukocytosis of 16.93. It was noted that the patient had a superficial postoperative wound infection the patient was started on Keflex and was told to come to the emergency department on Tuesday, July 19, 2022 for staple removal. Patient was seen by AFTAB Hodges today July 19, 2022 and then referred to the emergency department. Laboratory Data Attestation: I reviewed the patient's lab results. 07/19/22 10:25 07/19/22 10:25 Lab Results 07/19/22 07/19/22 07/19/22 Range/Units 10:25 10:25 10:25 WBC 22.25 H (4.8-10.8) K/ul RBC 3.03 L (4.20-5.40) M/uL Hgb 9.4 L (12.0-16.0) g/dl POC Hgb (12.0-16.0) g/dl Hct 28.2 L (37.0-47.0) % POC Hct (37-47) % MCV 93.1 (80.0-100.0) fL MCH 31.0 (25.0-34.0) pg MCHC 33.3 (32.0-36.0) g/dL RDW Std Deviation 47.9 H (36.4-46.3) fL RDW Coeff of Chapo 14.0 (11.5-14.5) % Plt Count 567 H (130-400) K/uL MPV 8.9 L (9.4-12.4) fL Immature Gran % (Auto) 4.7 % Neut % (Auto) 83.5 % Lymph % (Auto) 5.9 % [place] % (Auto) 4.9 % Eos % (Auto) 0.6 % Baso % (Auto) 0.4 % Neut # (Auto) 18.59 H (1.40-6.50) K/uL Lymph # (Auto) 1.31 (1.2-3.4) K/uL [place] # (Auto) 1.08 H (0.11-0.59) K/uL Eos # (Auto) 0.14 (0-0.50) K/uL Baso # (Auto) 0.08 (0-0.2) K/uL Immature Gran # (Auto) 1.05 H (0.01-0.20) K/uL PT 11.4 (9.0-12.0) Seconds INR 1.1 (0.9-1.1) APTT 30.8 (21.0-31.0) Seconds PTT Ratio 1.1 POC Sodium (135-144) mmol/L Sodium 138 (136-145) mmol/L POC Potassium (3.3-5.0) mmol/L Potassium 3.2 L (3.5-5.1) mmol/L POC Chloride (101-112) mmol/L Chloride 101 (98-107) mmol/L Carbon Dioxide 25 (21-32) mmol/L POC Total CO2 (24-31) mmol/L Anion Gap 12 H (3-11) POC Anion Gap (16-25) mmol/L POC BUN (7-18) mg/dl BUN 11 (6-23) mg/dl Creatinine 0.62 (0.6-1.2) mg/dl POC Creatinine (0.6-1.3) mg/dl Est Cr Clr Drug Dosing 140.6 ml/min Est GFR ( Amer) 133.5 ml/min Est GFR (Non-Af Amer) 115.2 ml/min BUN/Creatinine Ratio 17.7 (10-20) Glucose 85 (70-99(Fasting)) mg/dl POC Glucose (other) (70-99) mg/dl Lactate (0.4-2.0) mmol/L Calcium 8.3 L (8.6-10.3) mg/dl POC Ioniz Calcium Danitza (1.12-1.32) mmol/l Magnesium 1.8 (1.7-2.4) mg/dl Total Bilirubin 0.5 (0.2-1.0) mg/dl Direct Bilirubin 0.1 (0-0.2) mg/dl AST 34 (13-39) U/L ALT 41 (7-52) U/L Alkaline Phosphatase 201 H (34-104) U/L Troponin I High Sens 32.6 H (0-14) pg/ml Total Protein 6.2 (6.0-8.3) gm/dl Albumin 2.7 L (3.4-5.0) gm/dl Lipase 32 (11-82) U/L Procalcitonin (0-0.5) ng/ml Urine Color Urine Appearance (Clear) Urine pH (4.5-7.5) Ur Specific [place] (1.000-1.030) Urine Protein (Negative) Urine Glucose (UA) (Negative) Urine Ketones (Negative) Urine Blood (Negative) Urine Nitrite (Negative) Urine Bilirubin (Negative) Urine Urobilinogen (Negative) Ur Leukocyte Esterase (Negative) Urine WBC (Auto) (0-5) /hpf Urine RBC (Auto) (0-4) /hpf U Hyaline Cast (Auto) (0-5) /lpf U Epithel Cells (Auto) (0-5) /lpf Urine Bacteria (Auto) (Negative) Acetaminophen (10-30) ug/ml SARS-CoV-2, RNA, NAAT (NEGATIVE) Blood Type Antibody Screen 07/19/22 07/19/22 07/19/22 Range/Units 10:25 10:25 11:08 WBC (4.8-10.8) K/ul RBC (4.20-5.40) M/uL Hgb (12.0-16.0) g/dl POC Hgb (12.0-16.0) g/dl Hct (37.0-47.0) % POC Hct (37-47) % MCV (80.0-100.0) fL MCH (25.0-34.0) pg MCHC (32.0-36.0) g/dL RDW Std Deviation (36.4-46.3) fL RDW Coeff of Chapo (11.5-14.5) % Plt Count (130-400) K/uL MPV (9.4-12.4) fL Immature Gran % (Auto) % Neut % (Auto) % Lymph % (Auto) % [place] % (Auto) % Eos % (Auto) % Baso % (Auto) % Neut # (Auto) (1.40-6.50) K/uL Lymph # (Auto) (1.2-3.4) K/uL [place] # (Auto) (0.11-0.59) K/uL Eos # (Auto) (0-0.50) K/uL Baso # (Auto) (0-0.2) K/uL Immature Gran # (Auto) (0.01-0.20) K/uL PT (9.0-12.0) Seconds INR (0.9-1.1) APTT (21.0-31.0) Seconds PTT Ratio POC Sodium (135-144) mmol/L Sodium (136-145) mmol/L POC Potassium (3.3-5.0) mmol/L Potassium (3.5-5.1) mmol/L POC Chloride (101-112) mmol/L Chloride (98-107) mmol/L Carbon Dioxide (21-32) mmol/L POC Total CO2 (24-31) mmol/L Anion Gap (3-11) POC Anion Gap (16-25) mmol/L POC BUN (7-18) mg/dl BUN (6-23) mg/dl Creatinine (0.6-1.2) mg/dl POC Creatinine (0.6-1.3) mg/dl Est Cr Clr Drug Dosing ml/min Est GFR ( Amer) ml/min Est GFR (Non-Af Amer) ml/min BUN/Creatinine Ratio (10-20) Glucose (70-99(Fasting)) mg/dl POC Glucose (other) (70-99) mg/dl Lactate (0.4-2.0) mmol/L Calcium (8.6-10.3) mg/dl POC Ioniz Calcium Danitza (1.12-1.32) mmol/l Magnesium (1.7-2.4) mg/dl Total Bilirubin (0.2-1.0) mg/dl Direct Bilirubin (0-0.2) mg/dl AST (13-39) U/L ALT (7-52) U/L Alkaline Phosphatase (34-104) U/L Troponin I High Sens (0-14) pg/ml Total Protein (6.0-8.3) gm/dl Albumin (3.4-5.0) gm/dl Lipase (11-82) U/L Procalcitonin 0.21 (0-0.5) ng/ml Urine Color Urine Appearance (Clear) Urine pH (4.5-7.5) Ur Specific [place] (1.000-1.030) Urine Protein (Negative) Urine Glucose (UA) (Negative) Urine Ketones (Negative) Urine Blood (Negative) Urine Nitrite (Negative) Urine Bilirubin (Negative) Urine Urobilinogen (Negative) Ur Leukocyte Esterase (Negative) Urine WBC (Auto) (0-5) /hpf Urine RBC (Auto) (0-4) /hpf U Hyaline Cast (Auto) (0-5) /lpf U Epithel Cells (Auto) (0-5) /lpf Urine Bacteria (Auto) (Negative) Acetaminophen 3 L (10-30) ug/ml SARS-CoV-2, RNA, NAAT (NEGATIVE) Blood Type A Positive Antibody Screen NEGATIVE 07/19/22 07/19/22 07/19/22 Range/Units 11:10 11:13 11:15 WBC (4.8-10.8) K/ul RBC (4.20-5.40) M/uL Hgb (12.0-16.0) g/dl POC Hgb 9.2 L (12.0-16.0) g/dl Hct (37.0-47.0) % POC Hct 27 L (37-47) % MCV (80.0-100.0) fL MCH (25.0-34.0) pg MCHC (32.0-36.0) g/dL RDW Std Deviation (36.4-46.3) fL RDW Coeff of Chapo (11.5-14.5) % Plt Count (130-400) K/uL MPV (9.4-12.4) fL Immature Gran % (Auto) % Neut % (Auto) % Lymph % (Auto) % [place] % (Auto) % Eos % (Auto) % Baso % (Auto) % Neut # (Auto) (1.40-6.50) K/uL Lymph # (Auto) (1.2-3.4) K/uL [place] # (Auto) (0.11-0.59) K/uL Eos # (Auto) (0-0.50) K/uL Baso # (Auto) (0-0.2) K/uL Immature Gran # (Auto) (0.01-0.20) K/uL PT (9.0-12.0) Seconds INR (0.9-1.1) APTT (21.0-31.0) Seconds PTT Ratio POC Sodium 138 (135-144) mmol/L Sodium (136-145) mmol/L POC Potassium 3.2 L (3.3-5.0) mmol/L Potassium (3.5-5.1) mmol/L POC Chloride 101 (101-112) mmol/L Chloride (98-107) mmol/L Carbon Dioxide (21-32) mmol/L POC Total CO2 24 (24-31) mmol/L Anion Gap (3-11) POC Anion Gap 17.0 (16-25) mmol/L POC BUN 9 (7-18) mg/dl BUN (6-23) mg/dl Creatinine (0.6-1.2) mg/dl POC Creatinine 0.6 (0.6-1.3) mg/dl Est Cr Clr Drug Dosing ml/min Est GFR ( Amer) ml/min Est GFR (Non-Af Amer) ml/min BUN/Creatinine Ratio (10-20) Glucose (70-99(Fasting)) mg/dl POC Glucose (other) 85 (70-99) mg/dl Lactate 0.5 (0.4-2.0) mmol/L Calcium (8.6-10.3) mg/dl POC Ioniz Calcium Danitza 1.05 L (1.12-1.32) mmol/l Magnesium (1.7-2.4) mg/dl Total Bilirubin (0.2-1.0) mg/dl Direct Bilirubin (0-0.2) mg/dl AST (13-39) U/L ALT (7-52) U/L Alkaline Phosphatase (34-104) U/L Troponin I High Sens (0-14) pg/ml Total Protein (6.0-8.3) gm/dl Albumin (3.4-5.0) gm/dl Lipase (11-82) U/L Procalcitonin (0-0.5) ng/ml Urine Color Dark Yellow Urine Appearance Turbid A (Clear) Urine pH 6.0 (4.5-7.5) Ur Specific [place] 1.030 (1.000-1.030) Urine Protein 2+ H (Negative) Urine Glucose (UA) Negative (Negative) Urine Ketones 4+ H (Negative) Urine Blood 3+ H (Negative) Urine Nitrite Negative (Negative) Urine Bilirubin Negative (Negative) Urine Urobilinogen Negative (Negative) Ur Leukocyte Esterase 2+ H (Negative) Urine WBC (Auto) >30 H (0-5) /hpf Urine RBC (Auto) >30 H (0-4) /hpf U Hyaline Cast (Auto) 5-10 H (0-5) /lpf U Epithel Cells (Auto) 20-30 H (0-5) /lpf Urine Bacteria (Auto) Negative (Negative) Acetaminophen (10-30) ug/ml SARS-CoV-2, RNA, NAAT (NEGATIVE) Blood Type Antibody Screen 07/19/22 Range/Units 13:30 WBC (4.8-10.8) K/ul RBC (4.20-5.40) M/uL Hgb (12.0-16.0) g/dl POC Hgb (12.0-16.0) g/dl Hct (37.0-47.0) % POC Hct (37-47) % MCV (80.0-100.0) fL MCH (25.0-34.0) pg MCHC (32.0-36.0) g/dL RDW Std Deviation (36.4-46.3) fL RDW Coeff of Chapo (11.5-14.5) % Plt Count (130-400) K/uL MPV (9.4-12.4) fL Immature Gran % (Auto) % Neut % (Auto) % Lymph % (Auto) % [place] % (Auto) % Eos % (Auto) % Baso % (Auto) % Neut # (Auto) (1.40-6.50) K/uL Lymph # (Auto) (1.2-3.4) K/uL [place] # (Auto) (0.11-0.59) K/uL Eos # (Auto) (0-0.50) K/uL Baso # (Auto) (0-0.2) K/uL Immature Gran # (Auto) (0.01-0.20) K/uL PT (9.0-12.0) Seconds INR (0.9-1.1) APTT (21.0-31.0) Seconds PTT Ratio POC Sodium (135-144) mmol/L Sodium (136-145) mmol/L POC Potassium (3.3-5.0) mmol/L Potassium (3.5-5.1) mmol/L POC Chloride (101-112) mmol/L Chloride (98-107) mmol/L Carbon Dioxide (21-32) mmol/L POC Total CO2 (24-31) mmol/L Anion Gap (3-11) POC Anion Gap (16-25) mmol/L POC BUN (7-18) mg/dl BUN (6-23) mg/dl Creatinine (0.6-1.2) mg/dl POC Creatinine (0.6-1.3) mg/dl Est Cr Clr Drug Dosing ml/min Est GFR ( Amer) ml/min Est GFR (Non-Af Amer) ml/min BUN/Creatinine Ratio (10-20) Glucose (70-99(Fasting)) mg/dl POC Glucose (other) (70-99) mg/dl Lactate (0.4-2.0) mmol/L Calcium (8.6-10.3) mg/dl POC Ioniz Calcium Danitza (1.12-1.32) mmol/l Magnesium (1.7-2.4) mg/dl Total Bilirubin (0.2-1.0) mg/dl Direct Bilirubin (0-0.2) mg/dl AST (13-39) U/L ALT (7-52) U/L Alkaline Phosphatase (34-104) U/L Troponin I High Sens (0-14) pg/ml Total Protein (6.0-8.3) gm/dl Albumin (3.4-5.0) gm/dl Lipase (11-82) U/L Procalcitonin (0-0.5) ng/ml Urine Color Urine Appearance (Clear) Urine pH (4.5-7.5) Ur Specific [place] (1.000-1.030) Urine Protein (Negative) Urine Glucose (UA) (Negative) Urine Ketones (Negative) Urine Blood (Negative) Urine Nitrite (Negative) Urine Bilirubin (Negative) Urine Urobilinogen (Negative) Ur Leukocyte Esterase (Negative) Urine WBC (Auto) (0-5) /hpf Urine RBC (Auto) (0-4) /hpf U Hyaline Cast (Auto) (0-5) /lpf U Epithel Cells (Auto) (0-5) /lpf Urine Bacteria (Auto) (Negative) Acetaminophen (10-30) ug/ml SARS-CoV-2, RNA, NAAT NEGATIVE (NEGATIVE) Blood Type Antibody Screen Imaging Data Attestation: I personally reviewed and interpreted this imaging study as follows: My Impression: Chest x-ray negative. Airway clear. No pneumothorax. No consolidation. No cardiomegaly or cephalization.. No free air under the diaphragm. No fractures of the skeletal structures. Radiologist's Impression: Chest X-Ray 07/19/22 11:00 XR chest 1V portable CLINICAL HISTORY: Sepsis TECHNIQUE: Single frontal radiograph of the chest was obtained. Comparison: None available at the time of this dictation. FINDINGS: No lines and tubes are seen. The cardiomediastinal silhouette is normal. The lungs are clear. No evidence of pleural effusion or pneumothorax. IMPRESSION: No acute chest disease. ACT 112: Negative or not required by law. Electronically signed by: Toan Mccall M.D. 07/19/2022 12:16 PM Abdomen/Pelvis CT 07/19/22 11:01 CT abd pelvis IV con only CLINICAL HISTORY: abd pain s/p c section erythma and warmth over inc. was performed 07/10/2022 TECHNIQUE: Helical axial images of the abdomen and pelvis were obtained and displayed. Automated dose lowering techniques and/or adjustment according to patient size were utilized for this exam. This exam was performed with intravenous contrast. CT DOSE: 796.30 mGy.cm COMPARISON: None available at the time of this dictation. FINDINGS: Lower chest: Bibasilar atelectasis versus scarring is seen. Liver: Unremarkable. No focal lesions are seen. Gallbladder and biliary tree: No calcified gallstones. Normal caliber wall. No intra- or extrahepatic biliary ductal dilation. Pancreas: Unremarkable, no focal lesions. Spleen: Unremarkable. Adrenals: Unremarkable. Kidneys and ureters: Unremarkable. Bladder: Limited evaluation due to underdistention. Reproductive organs: Hyperemic appearance of the uterus compatible with recent state. Bowel: Prominent abdominal fluid is seen with development of some enhancing asher. Lymph nodes Retroperitoneal: Unremarkable. Pelvic: Unremarkable. Mesenteric: Unremarkable. Peritoneum: Normal. Vessels: Unremarkable. Abdominal wall: Incision is seen in the lower abdomen compatible with recent C- section. A small amount of subcutaneous edema is seen without encapsulated drainable fluid collection. Bones: Unremarkable. IMPRESSION: 1. There is a moderate amount of abdominal fluid with some enhancing asher suggesting development of partial encapsulation. Findings are concerning for peritonitis/abscess formation in this patient with leukocytosis. 2. Expected postsurgical fat stranding and skin thickening at the site of the incision. No evidence of drainable subcutaneous collection. 3. Expected appearance of the uterus. ACT 112: Negative or not required by law. Electronically signed by: Toan Mccall M.D. 07/19/2022 12:15 PM ECG Data Attestation: I personally reviewed and interpreted this ECG as follows: Indication: + tachycardia Rate (beats per minute): 80 Rhythm: + normal sinus ECG Intervals/blocks: + Normal QRS, + Normal DC and + Normal QT-c ECG ST segments: + Normal ST segments MDM Narrative 1037: The patient was evaluated in room B4. A complete history and physical exam was performed Cardiac monitoring: An order was placed for continuous cardiac monitoring. The monitor shows a rate of 90 with sinus rhythm interpreted by ct 1240: Vital signs stable. Labs show leukocytosis 22.25 up from 16.956 days ago. Hemoglobin 9.4. Neutrophils 18.59. Potassium 3.2. Lactic acid within normal limits. Troponin elevated at 32.6. Alkaline phosphatase 201. Urinalysis is contaminated sample but negative for bacteria. Tylenol level within normal limits. CT imaging shows moderate amount of abdominal fluid with some enhancement of wall suggesting development of a partial encapsulation concerning for peritonitis/abscess formation with patient leukocytosis. Expected postsurgical fat stranding and skin thickening at site of incision no drainable subcutaneous collection. Rocephin and vancomycin started for the patient. Expected appearance of the uterus. Discussed the case with CORRUGATOR OPERATOR [employer] on-call Dr. Zamora. She states she will be down to evaluate the patient for admission. 1357: CORRUGATOR OPERATOR [place] on-call Dr. Zamora evaluating patient Impression & Plan Post op infection Discharge Plan Visit Data Chief Complaint: Pelvic Pain Stated Complaint: PAIN, POST ED Provider: Jean-Paul Mane Discharge Problem: Post op infection Patient Disposition: Admitted As Inpatient Forms Stand Alone Forms: [facility] [employer] Prescriptions Prescriptions: No Action Iron (ferrous sulfate) 1 tab PO DAILY 1 tab PO DAILY (DME) breast pump Device See Rx Instructions .ROUTE .MEDSUPPLY Qty: 1 0RF Rx Instructions: As directed oxycodone-acetaminophen [Percocet] 5-325 mg Tablet 1 tab PO Q4H Qty: 20 0RF Vitamin 27 mg iron- 800 mcg Tablet 1 tab PO DAILY@08 Qty: 90 4RF ibuprofen 600 mg tablet 600 mg PO Q4H PRN (Reason: Pain) cephalexin 500 mg capsule 500 mg PO BID Rx Instructions: BEGIN 07/17/22 X 10 DAYS Referrals Referrals: Nava Anthony DO [Primary Care Provider] - Post op infection Qualifiers: Encounter type: initial encounter Postoperative infection type: unspecified type Qualified Code(s): T81.40XA - Infection following a procedure, unspecified, initial encounter
[2022-07-19] MEDS ORDERED: ACETAMINOPHEN 325 MG TAB PO PRN (14:24)
[2022-07-19] MEDS ORDERED: IBUPROFEN 600 MG TAB PO PRN (14:24)
[2022-07-19] MEDS ORDERED: LORazepam 0.5 MG TAB PO PRN (14:24)
[2022-07-19] MEDS ORDERED: POLYETHYLENE (MIRALAX) 17 GM PACK PO PRN (14:24)
[2022-07-19] MEDS ORDERED: MAGNESIUM HYDROXIDE SUSP 30 ML UDC PO PRN ×2 (14:24→22:09)
[2022-07-19] MEDS ORDERED: ALUMINUM/MAGNESIUM/SIMETH (MAALOX MAX) 30 ML UDC PO PRN (14:24)
[2022-07-19] MEDS ORDERED: ONDANSETRON INJ 2 MG/ML 2 ML VIAL IV PRN (14:24)
[2022-07-19] MEDS ORDERED: D5W AND 1/2NSS + 20MEQ KCL 20 MEQ/1,000 ML BAG IV SCH (14:30)
--- NOTE | 2022-07-19 15:23 | Surgery Consultation ---
Date of Consultation July 19, 2022 Assessment & Plan (1) Post op infection: This is a 37yF with no significant PMH who is recently s/p with delivery of baby boy on 07/10/22 who presents to the [facility] ED on 07/19/22 with complaints of abdominal pain and some drainage from incision. She has been passing loose stools and flatus, but they are painful to her. In the ER she underwent a CT a/p that revealed a moderate amount of abdominal fluid with some enhancing asher suggesting development of partial encapsulation. Findings are concerning for peritonitis/abscess formation in this patient with leukocytosis. WBC 22. Vital signs are stable. On exam she has a post abdomen. There is erythema noted surrounding incision with some bloody drainage noted, superficial opening to the midline of incision and reveals intact fascia. Generalized discomfort to palpation. Discussed with gynecology service. May want to consider discussing with IR to see if they can sample fluid + leave a drain. If their service decides on surgical intervention we can be available if general surgical assistance is needed. Likely dealing with post op wound infection, does not appear to be any bowel involvement at this time. Agree with IV abx to treat infection and remained of care per [facility]. Supervising Physician Co-Signing Physician Notes Patient seen and examined, labs and imaging reviewed, agree with above. 37-year-old female 1 week status post with wound infection, and deep surgical space infection. She has been passing some gas on the toilet and having some liquid bowel movements. She feels discomfort in her pelvis and right side when having a bowel movement. She was evaluated in the emergency department is afebrile with stable vitals. Her abdomen is soft, , mildly distended. Her incision has significant erythema and a small portion of it was opened. The fascia appears intact. No peritonitis on exam. Leukocytosis with WBC 22. CT scan personally viewed and interpreted and agree with pelvic fluid with some irritation of the peritoneal lining and rim- enhancing. There is no free air, there is no definitive abscess, and there is no ileus or obstruction. Would recommend admission to the gynecology service with antibiotics. Can discuss with interventional radiology about sampling fluid and possibly even a drain. If surgical intervention is planned, and there is any concern, general surgery is happy to be available. No primary general surgical indication at this time. May advance the patient's diet as tolerated if no plans for the OR from a gynecologic perspective. Surgery will follow. History of Present Illness History of Present Illness This is a 37yF with no significant PMH who is recently s/p with delivery of baby boy on 07/10/22 who presents to the [facility] ED on 07/19/22 with complaints of abdominal pain and some drainage from incision. She reports low appetite and pain with bowel movements she reports feels like razor blades. She has been passing flatus, but only when she is sitting on the toilet. Pain is around the incision, but also bilaterally on the sides. In the ER she underwent a CT a/p that revealed a moderate amount of abdominal fluid with some enhancing asher suggesting development of partial encapsulation. Findings are concerning for peritonitis/abscess formation in this patient with leukocytosis. She reports some subjective fevers at home. No nausea/vomiting. Baby is doing well per patient Allergies Allergy/AdvReac Type Severity Reaction Status Date / Time Sulfa (Sulfonamide Allergy Nausea Verified 07/19/22 15:26 Antibiotics) Home Medications Medication Instructions Recorded Confirmed Type breast pump #1 ea 07/12/22 Rx cephalexin 500 mg capsule 500 mg PO BID 07/19/22 07/19/22 History docusate sodium 100 mg tablet 100 mg PO BID 07/19/22 07/19/22 History ferrous sulfate 325 mg (65 mg 325 mg PO DAILY 07/19/22 07/19/22 History iron) tablet ibuprofen 600 mg tablet 600 mg PO Q4H PRN Pain 07/19/22 07/19/22 History magnesium hydroxide 400 mg/5 mL 15 ml PO DAILY PRN Constipation 07/19/22 07/19/22 History oral suspension (Milk of Magnesia) ondansetron 4 mg disintegrating 4 mg PO Q8H PRN Nausea 07/19/22 07/19/22 History tablet oxycodone-acetaminophen 5 mg-325 1 tab PO Q4H PRN Pain 07/19/22 07/19/22 History mg tablet (Percocet) vitamins-iron fumarate 65 1 tab PO DAILY 07/19/22 07/19/22 History mg iron-folic acid 1 mg tablet simethicone 125 mg tablet 125 mg PO BID PRN Gastrointestinal 07/19/22 07/19/22 History Spasms Or Cramping Patient History Medical History Endometriosis Normal colonoscopy to rule out rectal pain-2009. Surgical History H/O oral surgery wisdom teeth removal in 2011. History of delivery Family History Other Hypothyroidism Myocardial infarction Social History Smoking Status: Never smoker Hx Alcohol Use: Yes Hx Substance Use: No Preferred Language: Ukrainian De Icer Required: No Beliefs That Will Affect Care: None marital status: Current Living Situation: Spouse Feels Safe at Home: Yes Review of Systems Constitutional: + fever and + anorexia Respiratory: no dyspnea Gastrointestinal: + abdominal pain; no nausea and no vomiting pain with bowel movements. some drainage from incision Physical Exam Physical Exam: awake/alert, tearful and appropriately upset Respiratory: normal respiratory effort Gastrointestinal (Abdomen): Percussion/Palpation: abdomen soft post abdomen. erythema noted surrounding incision with some bloody drainage noted. artificial breast fabricator opened wound superficially in the mid portion of incision, fascia intact Results & Data Vital Signs (Past 12 Hours) Vital Signs Temp Pulse Pulse Resp BP BP Pulse Ox 07/19/22 15:00 92 H 20 96 07/19/22 15:00 126/68 07/19/22 14:30 98 H 16 97 07/19/22 14:30 131/69 07/19/22 14:00 106 H 24 96 07/19/22 14:00 118/70 07/19/22 13:30 90 17 97 07/19/22 13:30 126/68 07/19/22 13:12 83 17 96 07/19/22 14:36 95 H 15 96 07/19/22 13:13 87 07/19/22 12:16 89 15 132/64 94 07/19/22 11:10 15 98 07/19/22 10:30 95 H 124/60 96 07/19/22 09:54 37.1 C 115 H 18 142/70 H 97 O2 Del Method 07/19/22 15:00 07/19/22 15:00 07/19/22 14:30 07/19/22 14:30 07/19/22 14:00 07/19/22 14:00 07/19/22 13:30 07/19/22 13:30 07/19/22 13:12 07/19/22 14:36 Room Air 07/19/22 13:13 07/19/22 12:16 Room Air 07/19/22 11:10 Room Air 07/19/22 10:30 Room Air 07/19/22 09:54 Room Air Diagnostic Findings CT abd pelvis IV con only CLINICAL HISTORY: abd pain s/p c section erythma and warmth over inc. was performed 07/10/2022 TECHNIQUE: Helical axial images of the abdomen and pelvis were obtained and displayed. Automated dose lowering techniques and/or adjustment according to patient size were utilized for this exam. This exam was performed with intravenous contrast. CT DOSE: 796.30 mGy.cm COMPARISON: None available at the time of this dictation. FINDINGS: Lower chest: Bibasilar atelectasis versus scarring is seen. Liver: Unremarkable. No focal lesions are seen. Gallbladder and biliary tree: No calcified gallstones. Normal caliber wall. No intra- or extrahepatic biliary ductal dilation. Pancreas: Unremarkable, no focal lesions. Spleen: Unremarkable. Adrenals: Unremarkable. Kidneys and ureters: Unremarkable. Bladder: Limited evaluation due to underdistention. Reproductive organs: Hyperemic appearance of the uterus compatible with recent state. Bowel: Prominent abdominal fluid is seen with development of some enhancing asher. Lymph nodes Retroperitoneal: Unremarkable. Pelvic: Unremarkable. Mesenteric: Unremarkable. Peritoneum: Normal. Vessels: Unremarkable. Abdominal wall: Incision is seen in the lower abdomen compatible with recent C- section. A small amount of subcutaneous edema is seen without encapsulated drainable fluid collection. Bones: Unremarkable. IMPRESSION: 1. There is a moderate amount of abdominal fluid with some enhancing asher suggesting development of partial encapsulation. Findings are concerning for peritonitis/abscess formation in this patient with leukocytosis. 2. Expected postsurgical fat stranding and skin thickening at the site of the incision. No evidence of drainable subcutaneous collection. 3. Expected appearance of the uterus. ACT 112: Negative or not required by law. Electronically signed by: Toan Mccall M.D. 07/19/2022 12:15 PM PG Care Time/CCT Total # of Minutes Spent Total Time Spent with Patient: Total time spent is greater than 50% in coordination of care (as documented) at patient's floor/unit and/or counseling patient: Coding Level of Care Code 38524 IN/OBS CONSULT LVL 3,45M Diagnoses Post op infection T81.40XA Encounter type: initial encounter Postoperative infection type: unspecified type (1) Post op infection Encounter type: initial encounter Postoperative infection type: unspecified type Qualified Code(s): T81.40XA - Infection following a procedure, un specified, initial encounter
--- NOTE | 2022-07-19 15:44 | OB/GYN Consultation ---
Date of Consultation July 19, 2022 Assessment & Plan (1) Post op infection: (2) Wound infection following section, : (3) Seroma infection, postoperative: Patient is a 37 yo s/p Primary C section on 07/10 after prolonged induction since 07/08. She has delivered a viable male infant on 07/10. She was discharged on 07/14. Now presenting today with wound infection, seroma, drainage Fluid in pelvis with elevated WBCC Wound care, G surgery consult placed I spoke with G surgery recommended IR to drain eplvic fluid I spoke with radiology team, they do not have IR to drain it and they recommended to transfer [place] [facility] [place] Patient accepted and prefers to go to [facility] ER team is aware and we are calling [facility] for transfer. (4) Pelvic fluid collection: History of Present Illness Reason for Consultation: Wound infection History of Present Illness Patient is a 37 yo s/p Primary C section on 07/10 after prolonged induction since 07/08. She has delivered a viable male infant on 07/10. She was discharged on 07/14. She has been having increased abdominal pain and redness on the incision as well as abdominal distention. She has not been able to pass gas but passes small liquid like BM's. She does not have much apetite and able to eat light food like yogurt, fruits. Nausea +, NO Vomiting She has had episodes of fevers in the afternoons, 100.4-101 F but they were resolving in the evenings. She has been seen by an senior network security architect in [place] and was prescribed Keflex 2 days ago for wound infection. She has started it yesterday. VB is mininal No problems with urination. She was seen at [facility] office today and noted to have diffuse redness and induration on wound and sent here. She had blood work and CT of abd/ pelvis and I was called. She was given 1 mg Dilaudid here and is still in pain. Allergies Allergy/AdvReac Type Severity Reaction Status Date / Time Sulfa (Sulfonamide Allergy Nausea Verified 07/19/22 15:26 Antibiotics) Home Medications Medication Instructions Recorded Confirmed Type breast pump #1 ea 07/12/22 Rx cephalexin 500 mg capsule 500 mg PO BID 07/19/22 07/19/22 History docusate sodium 100 mg tablet 100 mg PO BID 07/19/22 07/19/22 History ferrous sulfate 325 mg (65 mg 325 mg PO DAILY 07/19/22 07/19/22 History iron) tablet ibuprofen 600 mg tablet 600 mg PO Q4H PRN Pain 07/19/22 07/19/22 History magnesium hydroxide 400 mg/5 mL 15 ml PO DAILY PRN Constipation 07/19/22 07/19/22 History oral suspension (Milk of Magnesia) ondansetron 4 mg disintegrating 4 mg PO Q8H PRN Nausea 07/19/22 07/19/22 History tablet oxycodone-acetaminophen 5 mg-325 1 tab PO Q4H PRN Pain 07/19/22 07/19/22 History mg tablet (Percocet) vitamins-iron fumarate 65 1 tab PO DAILY 07/19/22 07/19/22 History mg iron-folic acid 1 mg tablet simethicone 125 mg tablet 125 mg PO BID PRN Gastrointestinal 07/19/22 07/19/22 History Spasms Or Cramping Patient History Medical History Endometriosis Normal colonoscopy to rule out rectal pain-2009. Surgical History H/O oral surgery wisdom teeth removal in 2011. 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 Beliefs That Will Affect Care: None marital status: Current Living Situation: Spouse Feels Safe at Home: Yes Review of Systems Constitutional: as per Subjective / HPI, + fever, + chills and + malaise Physical Exam Constitutional: WD/WN, vitals as above well developed, well nourished and + acute distress (she is uncomfortable) Gastrointestinal (Abdomen): Inspection/Auscultation: + abdomen distended, + abdominal edema, + abdominal surgical scar and + abdominal surgical incision (diffuse erythema, induration from mid abdomen till mons pubis) Percussion/Palpation: + abdomen tender and + guarding I removed chau and she started draining abundant serosanguineous fluids. I probed with sterile Q tip and fascia is intact all the way I flushed/ irrigated SQ tissue with sterile water multiple times and covered with Sterile dressings and called wound care. Genitourinary: normal external appearance Lochia minimal. Results & Data Vital Signs (Past 12 Hours) Vital Signs Temp Pulse Pulse Resp BP BP Pulse Ox 07/19/22 15:00 92 H 20 96 07/19/22 15:00 126/68 07/19/22 14:30 98 H 16 97 07/19/22 14:30 131/69 07/19/22 14:00 106 H 24 96 07/19/22 14:00 118/70 07/19/22 13:30 90 17 97 07/19/22 13:30 126/68 07/19/22 13:12 83 17 96 07/19/22 14:36 95 H 15 96 07/19/22 13:13 87 07/19/22 12:16 89 15 132/64 94 07/19/22 11:10 15 98 07/19/22 10:30 95 H 124/60 96 07/19/22 09:54 37.1 C 115 H 18 142/70 H 97 O2 Del Method 07/19/22 15:00 07/19/22 15:00 07/19/22 14:30 07/19/22 14:30 07/19/22 14:00 07/19/22 14:00 07/19/22 13:30 07/19/22 13:30 07/19/22 13:12 07/19/22 14:36 Room Air 07/19/22 13:13 07/19/22 12:16 Room Air 07/19/22 11:10 Room Air 07/19/22 10:30 Room Air 07/19/22 09:54 Room Air Laboratory Results Lab Results 07/19/22 07/19/22 07/19/22 Range/Units 10:25 10:25 10:25 WBC 22.25 H (4.8-10.8) K/ul RBC 3.03 L (4.20-5.40) M/uL Hgb 9.4 L (12.0-16.0) g/dl POC Hgb (12.0-16.0) g/dl Hct 28.2 L (37.0-47.0) % POC Hct (37-47) % MCV 93.1 (80.0-100.0) fL MCH 31.0 (25.0-34.0) pg MCHC 33.3 (32.0-36.0) g/dL RDW Std Deviation 47.9 H (36.4-46.3) fL RDW Coeff of Chapo 14.0 (11.5-14.5) % Plt Count 567 H (130-400) K/uL MPV 8.9 L (9.4-12.4) fL Immature Gran % (Auto) 4.7 % Neut % (Auto) 83.5 % Lymph % (Auto) 5.9 % [place] % (Auto) 4.9 % Eos % (Auto) 0.6 % Baso % (Auto) 0.4 % Neut # (Auto) 18.59 H (1.40-6.50) K/uL Lymph # (Auto) 1.31 (1.2-3.4) K/uL [place] # (Auto) 1.08 H (0.11-0.59) K/uL Eos # (Auto) 0.14 (0-0.50) K/uL Baso # (Auto) 0.08 (0-0.2) K/uL Immature Gran # (Auto) 1.05 H (0.01-0.20) K/uL PT 11.4 (9.0-12.0) Seconds INR 1.1 (0.9-1.1) APTT 30.8 (21.0-31.0) Seconds PTT Ratio 1.1 POC Sodium (135-144) mmol/L Sodium 138 (136-145) mmol/L POC Potassium (3.3-5.0) mmol/L Potassium 3.2 L (3.5-5.1) mmol/L POC Chloride (101-112) mmol/L Chloride 101 (98-107) mmol/L Carbon Dioxide 25 (21-32) mmol/L POC Total CO2 (24-31) mmol/L Anion Gap 12 H (3-11) POC Anion Gap (16-25) mmol/L POC BUN (7-18) mg/dl BUN 11 (6-23) mg/dl Creatinine 0.62 (0.6-1.2) mg/dl POC Creatinine (0.6-1.3) mg/dl Est Cr Clr Drug Dosing 140.6 ml/min Est GFR ( Amer) 133.5 ml/min Est GFR (Non-Af Amer) 115.2 ml/min BUN/Creatinine Ratio 17.7 (10-20) Glucose 85 (70-99(Fasting)) mg/dl POC Glucose (other) (70-99) mg/dl Lactate (0.4-2.0) mmol/L Calcium 8.3 L (8.6-10.3) mg/dl POC Ioniz Calcium Danitza (1.12-1.32) mmol/l Magnesium 1.8 (1.7-2.4) mg/dl Total Bilirubin 0.5 (0.2-1.0) mg/dl Direct Bilirubin 0.1 (0-0.2) mg/dl AST 34 (13-39) U/L ALT 41 (7-52) U/L Alkaline Phosphatase 201 H (34-104) U/L Troponin I High Sens 32.6 H (0-14) pg/ml Total Protein 6.2 (6.0-8.3) gm/dl Albumin 2.7 L (3.4-5.0) gm/dl Lipase 32 (11-82) U/L Procalcitonin (0-0.5) ng/ml Urine Color Urine Appearance (Clear) Urine pH (4.5-7.5) Ur Specific [place] (1.000-1.030) Urine Protein (Negative) Urine Glucose (UA) (Negative) Urine Ketones (Negative) Urine Blood (Negative) Urine Nitrite (Negative) Urine Bilirubin (Negative) Urine Urobilinogen (Negative) Ur Leukocyte Esterase (Negative) Urine WBC (Auto) (0-5) /hpf Urine RBC (Auto) (0-4) /hpf U Hyaline Cast (Auto) (0-5) /lpf U Epithel Cells (Auto) (0-5) /lpf Urine Bacteria (Auto) (Negative) Acetaminophen (10-30) ug/ml SARS-CoV-2, RNA, NAAT (NEGATIVE) Blood Type Antibody Screen 03/24/23 03/24/23 03/24/23 Range/Units 10:25 10:25 11:08 WBC (4.8-10.8) K/ul RBC (4.20-5.40) M/uL Hgb (12.0-16.0) g/dl POC Hgb (12.0-16.0) g/dl Hct (37.0-47.0) % POC Hct (37-47) % MCV (80.0-100.0) fL MCH (25.0-34.0) pg MCHC (32.0-36.0) g/dL RDW Std Deviation (36.4-46.3) fL RDW Coeff of Chapo (11.5-14.5) % Plt Count (130-400) K/uL MPV (9.4-12.4) fL Immature Gran % (Auto) % Neut % (Auto) % Lymph % (Auto) % [place] % (Auto) % Eos % (Auto) % Baso % (Auto) % Neut # (Auto) (1.40-6.50) K/uL Lymph # (Auto) (1.2-3.4) K/uL [place] # (Auto) (0.11-0.59) K/uL Eos # (Auto) (0-0.50) K/uL Baso # (Auto) (0-0.2) K/uL Immature Gran # (Auto) (0.01-0.20) K/uL PT (9.0-12.0) Seconds INR (0.9-1.1) APTT (21.0-31.0) Seconds PTT Ratio POC Sodium (135-144) mmol/L Sodium (136-145) mmol/L POC Potassium (3.3-5.0) mmol/L Potassium (3.5-5.1) mmol/L POC Chloride (101-112) mmol/L Chloride (98-107) mmol/L Carbon Dioxide (21-32) mmol/L POC Total CO2 (24-31) mmol/L Anion Gap (3-11) POC Anion Gap (16-25) mmol/L POC BUN (7-18) mg/dl BUN (6-23) mg/dl Creatinine (0.6-1.2) mg/dl POC Creatinine (0.6-1.3) mg/dl Est Cr Clr Drug Dosing ml/min Est GFR ( Amer) ml/min Est GFR (Non-Af Amer) ml/min BUN/Creatinine Ratio (10-20) Glucose (70-99(Fasting)) mg/dl POC Glucose (other) (70-99) mg/dl Lactate (0.4-2.0) mmol/L Calcium (8.6-10.3) mg/dl POC Ioniz Calcium Danitza (1.12-1.32) mmol/l Magnesium (1.7-2.4) mg/dl Total Bilirubin (0.2-1.0) mg/dl Direct Bilirubin (0-0.2) mg/dl AST (13-39) U/L ALT (7-52) U/L Alkaline Phosphatase (34-104) U/L Troponin I High Sens (0-14) pg/ml Total Protein (6.0-8.3) gm/dl Albumin (3.4-5.0) gm/dl Lipase (11-82) U/L Procalcitonin 0.21 (0-0.5) ng/ml Urine Color Urine Appearance (Clear) Urine pH (4.5-7.5) Ur Specific [place] (1.000-1.030) Urine Protein (Negative) Urine Glucose (UA) (Negative) Urine Ketones (Negative) Urine Blood (Negative) Urine Nitrite (Negative) Urine Bilirubin (Negative) Urine Urobilinogen (Negative) Ur Leukocyte Esterase (Negative) Urine WBC (Auto) (0-5) /hpf Urine RBC (Auto) (0-4) /hpf U Hyaline Cast (Auto) (0-5) /lpf U Epithel Cells (Auto) (0-5) /lpf Urine Bacteria (Auto) (Negative) Acetaminophen 3 L (10-30) ug/ml SARS-CoV-2, RNA, NAAT (NEGATIVE) Blood Type A Positive Antibody Screen NEGATIVE 07/19/22 07/19/22 07/19/22 Range/Units 11:10 11:13 11:15 WBC (4.8-10.8) K/ul RBC (4.20-5.40) M/uL Hgb (12.0-16.0) g/dl POC Hgb 9.2 L (12.0-16.0) g/dl Hct (37.0-47.0) % POC Hct 27 L (37-47) % MCV (80.0-100.0) fL MCH (25.0-34.0) pg MCHC (32.0-36.0) g/dL RDW Std Deviation (36.4-46.3) fL RDW Coeff of Chapo (11.5-14.5) % Plt Count (130-400) K/uL MPV (9.4-12.4) fL Immature Gran % (Auto) % Neut % (Auto) % Lymph % (Auto) % [place] % (Auto) % Eos % (Auto) % Baso % (Auto) % Neut # (Auto) (1.40-6.50) K/uL Lymph # (Auto) (1.2-3.4) K/uL [place] # (Auto) (0.11-0.59) K/uL Eos # (Auto) (0-0.50) K/uL Baso # (Auto) (0-0.2) K/uL Immature Gran # (Auto) (0.01-0.20) K/uL PT (9.0-12.0) Seconds INR (0.9-1.1) APTT (21.0-31.0) Seconds PTT Ratio POC Sodium 138 (135-144) mmol/L Sodium (136-145) mmol/L POC Potassium 3.2 L (3.3-5.0) mmol/L Potassium (3.5-5.1) mmol/L POC Chloride 101 (101-112) mmol/L Chloride (98-107) mmol/L Carbon Dioxide (21-32) mmol/L POC Total CO2 24 (24-31) mmol/L Anion Gap (3-11) POC Anion Gap 17.0 (16-25) mmol/L POC BUN 9 (7-18) mg/dl BUN (6-23) mg/dl Creatinine (0.6-1.2) mg/dl POC Creatinine 0.6 (0.6-1.3) mg/dl Est Cr Clr Drug Dosing ml/min Est GFR ( Amer) ml/min Est GFR (Non-Af Amer) ml/min BUN/Creatinine Ratio (10-20) Glucose (70-99(Fasting)) mg/dl POC Glucose (other) 85 (70-99) mg/dl Lactate 0.5 (0.4-2.0) mmol/L Calcium (8.6-10.3) mg/dl POC Ioniz Calcium Danitza 1.05 L (1.12-1.32) mmol/l Magnesium (1.7-2.4) mg/dl Total Bilirubin (0.2-1.0) mg/dl Direct Bilirubin (0-0.2) mg/dl AST (13-39) U/L ALT (7-52) U/L Alkaline Phosphatase (34-104) U/L Troponin I High Sens (0-14) pg/ml Total Protein (6.0-8.3) gm/dl Albumin (3.4-5.0) gm/dl Lipase (11-82) U/L Procalcitonin (0-0.5) ng/ml Urine Color Dark Yellow Urine Appearance Turbid A (Clear) Urine pH 6.0 (4.5-7.5) Ur Specific [place] 1.030 (1.000-1.030) Urine Protein 2+ H (Negative) Urine Glucose (UA) Negative (Negative) Urine Ketones 4+ H (Negative) Urine Blood 3+ H (Negative) Urine Nitrite Negative (Negative) Urine Bilirubin Negative (Negative) Urine Urobilinogen Negative (Negative) Ur Leukocyte Esterase 2+ H (Negative) Urine WBC (Auto) >30 H (0-5) /hpf Urine RBC (Auto) >30 H (0-4) /hpf U Hyaline Cast (Auto) 5-10 H (0-5) /lpf U Epithel Cells (Auto) 20-30 H (0-5) /lpf Urine Bacteria (Auto) Negative (Negative) Acetaminophen (10-30) ug/ml SARS-CoV-2, RNA, NAAT (NEGATIVE) Blood Type Antibody Screen 07/19/22 Range/Units 13:30 WBC (4.8-10.8) K/ul RBC (4.20-5.40) M/uL Hgb (12.0-16.0) g/dl POC Hgb (12.0-16.0) g/dl Hct (37.0-47.0) % POC Hct (37-47) % MCV (80.0-100.0) fL MCH (25.0-34.0) pg MCHC (32.0-36.0) g/dL RDW Std Deviation (36.4-46.3) fL RDW Coeff of Chapo (11.5-14.5) % Plt Count (130-400) K/uL MPV (9.4-12.4) fL Immature Gran % (Auto) % Neut % (Auto) % Lymph % (Auto) % [place] % (Auto) % Eos % (Auto) % Baso % (Auto) % Neut # (Auto) (1.40-6.50) K/uL Lymph # (Auto) (1.2-3.4) K/uL [place] # (Auto) (0.11-0.59) K/uL Eos # (Auto) (0-0.50) K/uL Baso # (Auto) (0-0.2) K/uL Immature Gran # (Auto) (0.01-0.20) K/uL PT (9.0-12.0) Seconds INR (0.9-1.1) APTT (21.0-31.0) Seconds PTT Ratio POC Sodium (135-144) mmol/L Sodium (136-145) mmol/L POC Potassium (3.3-5.0) mmol/L Potassium (3.5-5.1) mmol/L POC Chloride (101-112) mmol/L Chloride (98-107) mmol/L Carbon Dioxide (21-32) mmol/L POC Total CO2 (24-31) mmol/L Anion Gap (3-11) POC Anion Gap (16-25) mmol/L POC BUN (7-18) mg/dl BUN (6-23) mg/dl Creatinine (0.6-1.2) mg/dl POC Creatinine (0.6-1.3) mg/dl Est Cr Clr Drug Dosing ml/min Est GFR ( Amer) ml/min Est GFR (Non-Af Amer) ml/min BUN/Creatinine Ratio (10-20) Glucose (70-99(Fasting)) mg/dl POC Glucose (other) (70-99) mg/dl Lactate (0.4-2.0) mmol/L Calcium (8.6-10.3) mg/dl POC Ioniz Calcium Dan[place]za (1.12-1.32) mmol/l Magnesium (1.7-2.4) mg/dl Total Bilirubin (0.2-1.0) mg/dl Direct Bilirubin (0-0.2) mg/dl AST (13-39) U/L ALT (7-52) U/L Alkaline Phosphatase (34-104) U/L Troponin I High Sens (0-14) pg/ml Total Protein (6.0-8.3) gm/dl Albumin (3.4-5.0) gm/dl Lipase (11-82) U/L Procalcitonin (0-0.5) ng/ml Urine Color Urine Appearance (Clear) Urine pH (4.5-7.5) Ur Specific [place] (1.000-1.030) Urine Protein (Negative) Urine Glucose (UA) (Negative) Urine Ketones (Negative) Urine Blood (Negative) Urine Nitrite (Negative) Urine Bilirubin (Negative) Urine Urobilinogen (Negative) Ur Leukocyte Esterase (Negative) Urine WBC (Auto) (0-5) /hpf Urine RBC (Auto) (0-4) /hpf U Hyaline Cast (Auto) (0-5) /lpf U Epithel Cells (Auto) (0-5) /lpf Urine Bacteria (Auto) (Negative) Acetaminophen (10-30) ug/ml SARS-CoV-2, RNA, NAAT NEGATIVE (NEGATIVE) Blood Type Antibody Screen Diagnostic Findings IMPRESSION: 1. There is a moderate amount of abdominal fluid with some enhancing asher suggesting development of partial encapsulation. Findings are concerning for peritonitis/abscess formation in this patient with leukocytosis. 2. Expected postsurgical fat stranding and skin thickening at the site of the incision. No evidence of drainable subcutaneous collection. 3. Expected appearance of the uterus. Medications Administered Rocephin Vancomycin (1) Post op infection Encounter type: initial encounter Postoperative infection type: unspecified type Qualified Code(s): T81.40XA - Infection following a procedure, unspecified, initial encounter
--- NOTE | 2022-07-19 16:49 | Obstetrical Progress Note ---
Date of Service July 19, 2022 Subjective I spoke with [facility] for transfer, Dr Parisi accepted her. Patient signed an informed consent. Patient feels better. Wound care has not been here to see her. Dressing is dry. Continue to monitor closely. Results & Data Vital Signs (Past 12 Hours) Vital Signs Temp Pulse Pulse Resp BP BP Pulse Ox 07/19/22 15:00 92 H 20 96 07/19/22 15:00 126/68 07/19/22 14:30 98 H 16 97 07/19/22 14:30 131/69 07/19/22 14:00 106 H 24 96 07/19/22 14:00 118/70 07/19/22 13:30 90 17 97 07/19/22 13:30 126/68 07/19/22 13:12 83 17 96 07/19/22 14:36 95 H 15 96 07/19/22 13:13 87 07/19/22 12:16 89 15 132/64 94 07/19/22 11:10 15 98 07/19/22 10:30 95 H 124/60 96 07/19/22 09:54 37.1 C 115 H 18 142/70 H 97 O2 Del Method 07/19/22 15:00 07/19/22 15:00 07/19/22 14:30 07/19/22 14:30 07/19/22 14:00 07/19/22 14:00 07/19/22 13:30 07/19/22 13:30 07/19/22 13:12 07/19/22 14:36 Room Air 07/19/22 13:13 07/19/22 12:16 Room Air 07/19/22 11:10 Room Air 07/19/22 10:30 Room Air 07/19/22 09:54 Room Air
[2022-07-19] MEDS: HYDROmorphone INJ 1 MG/ML SYRINGE IV PRN (18:15)
[2022-07-19] MEDS: SODIUM CHLORIDE 0.9% 1000ML 1,000 ML IV SCH ×2 (19:30→22:48)
--- NOTE | 2022-07-19 20:15 | Electrocardiogram Report ---
Test Reason : Blood Pressure : / mmHG Vent. Rate : 080 BPM Atrial Rate : 080 BPM P-R Int : 116 ms QRS Dur : 094 ms QT Int : 390 ms P-R-T Axes : 051 039 014 degrees QTc Int : 449 ms Normal sinus rhythm Normal ECG No previous ECGs available Confirmed by Sergio Romero ([id number]) on 07/19/2022 8:15:02 PM Referred By: Estella Hodges Confirmed By:José Romero
[2022-07-19] MEDS ORDERED: KETOROLAC TROMETHAMINE 15 MG/ML VIAL IV PRN (20:18)
[2022-07-19] MEDS ORDERED: ACETAMINOPHEN 1,000 MG/100 ML VIAL IV PRN (20:20)
[2022-07-19] MEDS ORDERED: VANCOMYCIN HCL 1,000 MG in SODIUM CHLORIDE 0.9% 250 ML IV ONE (20:30)
--- NOTE | 2022-07-19 21:00 | Obstetrical Progress Note ---
Date of Service July 19, 2022 Subjective [facility] called back that they do not have beds for now, transfer may not be until tomorrow. Patient is aware Other option of transfer to [place] was discussed but she does not want to go to [place] and wants to stay here until [facility] would take her. Plan to admit here and continue with IV AB. Called ID for AB recommendations. Results & Data Vital Signs (Past 12 Hours) Vital Signs Temp Pulse Pulse Resp BP BP Pulse Ox 07/19/22 19:31 105 H 19 151/74 H 97 07/19/22 19:30 111 H 20 95 07/19/22 19:00 100 H 20 136/74 97 07/19/22 17:31 108 H 16 139/70 98 07/19/22 17:13 117 H 07/19/22 17:00 107 H 19 99 07/19/22 17:00 146/73 H 07/19/22 16:30 98 H 18 94 07/19/22 16:30 124/62 07/19/22 16:00 96 H 18 98 07/19/22 16:00 132/71 07/19/22 15:41 96 H 18 98 07/19/22 15:00 92 H 20 96 07/19/22 15:00 126/68 07/19/22 14:30 98 H 16 97 07/19/22 14:30 131/69 07/19/22 14:00 106 H 24 96 07/19/22 14:00 118/70 07/19/22 13:30 90 17 97 07/19/22 13:30 126/68 07/19/22 13:12 83 17 96 07/19/22 14:36 95 H 15 96 07/19/22 13:13 87 07/19/22 12:16 89 15 132/64 94 07/19/22 11:10 15 98 07/19/22 10:30 95 H 124/60 96 07/19/22 09:54 37.1 C 115 H 18 142/70 H 97 O2 Del Method 07/19/22 19:31 07/19/22 19:30 07/19/22 19:00 07/19/22 17:31 07/19/22 17:13 07/19/22 17:00 07/19/22 17:00 07/19/22 16:30 07/19/22 16:30 07/19/22 16:00 07/19/22 16:00 07/19/22 15:41 07/19/22 15:00 07/19/22 15:00 07/19/22 14:30 07/19/22 14:30 07/19/22 14:00 07/19/22 14:00 07/19/22 13:30 07/19/22 13:30 07/19/22 13:12 07/19/22 14:36 Room Air 07/19/22 13:13 07/19/22 12:16 Room Air 07/19/22 11:10 Room Air 07/19/22 10:30 Room Air 07/19/22 09:54 Room Air
[2022-07-19] MEDS ORDERED: oxyCODONE/ACETAMINOPHEN 5mg/325mg TAB PO PRN (22:09)
[2022-07-19] MEDS ORDERED: ONDANSETRON 4 MG OD TAB PO PRN (22:09)
[2022-07-19] MEDS ORDERED: SIMETHICONE 80 MG CHEW PO PRN (22:09)
[2022-07-19] MEDS: metroNIDAZOLE 500 MG/100 ML BAG IV SCH (22:21)
[2022-07-19] MEDS: METOCLOPRAMIDE HCL INJ 5 MG/ML 2 ML VIAL IV SCH (22:21)
[2022-07-19] MEDS: CEFEPIME 2,000 MG in SYRINGE 0 ML IV SCH (22:22)
[2022-07-19] MEDS: DOCUSATE SODIUM 100 MG CAP PO SCH (22:49)
[2022-07-20] MEDS: METOCLOPRAMIDE HCL INJ 5 MG/ML 2 ML VIAL IV SCH ×3 (01:04→12:36)
[2022-07-20] MEDS: HYDROmorphone INJ 1 MG/ML SYRINGE IV PRN ×2 (01:51→08:18)
[2022-07-20] MEDS ORDERED: VANCOMYCIN HCL 1,250 MG in SODIUM CHLORIDE 0.9% 500 ML IV SCH ×2 (02:00→09:00)
[2022-07-20] MEDS ORDERED: VANCOMYCIN HCL 1,000 MG in SODIUM CHLORIDE 0.9% 250 ML IV ONE (02:00)
--- NOTE | 2022-07-20 02:40 | Obstetrical Progress Note ---
Date of Service July 20, 2022 Assessment & Plan Admission and Anticipated Discharge Date Admission Date: July 19, 2022 Subjective Patient is reevaluated for wound care/ change dressings. She has been on triple AB's as recommended by ID from [facility] : Cefexime, Vancomycin and Flagyl. Cultures were collected from inside of the wound/ incision. Skin was cleaned and irrigated with sterile NS. Open part of wound was flushed/irrigated with sterile NS many times and then packed with wet 4x4 sponge. Then it was covered sterile dry dressing. Patient has received Toradol for pain earlier and did not help much. Now given Dilaudid and IV Tylenol for pain and desires to sleep. Continue to monitor closely. Await transfer to [facility] in am. Results & Data Vital Signs (Past 12 Hours) Vital Signs Temp Pulse Pulse Resp BP BP Pulse Ox 07/19/22 22:05 37.5 C 105 H 18 127/72 98 07/19/22 21:57 38.0 C H 118 H 24 142/64 H 96 07/19/22 21:02 109 H 20 95 07/19/22 21:00 112 H 23 142/64 H 96 07/19/22 20:30 112 H 20 142/86 H 97 07/19/22 20:00 117 H 18 149/89 H 97 07/19/22 20:00 149/89 H 07/19/22 19:31 105 H 19 151/74 H 97 07/19/22 19:30 111 H 20 95 07/19/22 19:00 100 H 20 136/74 97 07/19/22 17:31 108 H 16 139/70 98 07/19/22 17:13 117 H 07/19/22 17:00 107 H 19 99 07/19/22 17:00 146/73 H 07/19/22 16:30 98 H 18 94 07/19/22 16:30 124/62 07/19/22 16:00 96 H 18 98 07/19/22 16:00 132/71 07/19/22 15:41 96 H 18 98 07/19/22 15:00 92 H 20 96 07/19/22 15:00 126/68 O2 Del Method 07/19/22 22:05 Room Air 07/19/22 21:57 Room Air 07/19/22 21:02 07/19/22 21:00 07/19/22 20:30 07/19/22 20:00 07/19/22 20:00 07/19/22 19:31 07/19/22 19:30 07/19/22 19:00 07/19/22 17:31 07/19/22 17:13 07/19/22 17:00 07/19/22 17:00 07/19/22 16:30 07/19/22 16:30 07/19/22 16:00 07/19/22 16:00 07/19/22 15:41 07/19/22 15:00 07/19/22 15:00
[2022-07-20] MEDS: CEFEPIME 2,000 MG in SYRINGE 0 ML IV SCH ×2 (05:17→12:36)
[2022-07-20] MEDS: metroNIDAZOLE 500 MG/100 ML BAG IV SCH (05:33)
[2022-07-20 06:36] LABS: Hematocrit (blood only) 26.7 % (37.0-47.0); Hemoglobin 8.8 g/dl (12.0-16.0); Mean Corpuscular Hemoglobin 30.8 pg (25.0-34.0); Mean Corpuscular Volume 93.4 fL (80.0-100.0); Mean Platelet Volume 8.4 fL (9.4-12.4); Platelet Count 526 K/uL (130-400); Red Blood Count 2.86 M/uL (4.20-5.40); White Blood Count 22.42 K/ul (4.8-10.8)
[2022-07-20 07:03] LABS: Basophils # (auto) 0.09 K/uL (0-0.2); Basophils % (auto) 0.4 %; Eosinophils # (auto) 0.17 K/uL (0-0.50); Eosinophils % (auto) 0.8 %; Immature Granulocytes # (auto) 1.29 K/uL (0.01-0.20); Immature Granulocytes % (auto) 5.8 %; Lymphocytes # (auto) 1.48 K/uL (1.2-3.4); Lymphocytes % (auto) 6.6 %; Monocytes # (auto) 0.91 K/uL (0.11-0.59); Monocytes % (auto) 4.1 %; Neutrophils # (auto) 18.48 K/uL (1.40-6.50); Neutrophils % (auto) 82.3 %
[2022-07-20 07:13] LABS: Albumin Globulin Ratio 0.8 (0.9-2); Albumin Level 2.4 gm/dl (3.4-5.0); BUN Creatinine Ratio 11.8 (10-20); Bilirubin,Total 0.5 mg/dl (0.2-1.0); Calcium 7.8 mg/dl (8.6-10.3); Creatinine Clr Calc Pharmacy 128.4 ml/min; Est GFR (African American) 129.5 ml/min; Est GFR (Non-African American) 111.7 ml/min; Potassium 3.5 mmol/L (3.5-5.1); Total Protein 5.4 gm/dl (6.0-8.3)
[2022-07-20] MEDS ORDERED: VANCOMYCIN HCL 1,250 MG in SODIUM CHLORIDE 0.9% 250 ML IV SCH (08:00)
--- NOTE | 2022-07-20 08:09 | Progress Note ---
Date of Service July 20, 2022 Assessment & Plan (1) Pelvic fluid collection: (2) Seroma infection, postoperative: (3) Wound infection following section, : (4) Post op infection: Encounter type: initial encounter Postoperative infection type: unspecified type Qualified Code(s): T81.40XA - Infection following a procedure, unspecified, initial encounter Plan [place] [facility] [place] Continue scheduled antibiotics Admission and Anticipated Discharge Date Admission Date: July 19, 2022 Subjective Called transfer service for update, states she is still on the list to be [place] [facility] [place] Transfer service will call me back when they have a better idea when they will have a bed available Results & Data Vital Signs (Past 12 Hours) Vital Signs Temp Pulse Pulse Resp BP BP Pulse Ox 07/20/22 07:08 36.7 C 101 H 14 115/71 95 07/20/22 03:25 37.5 C 115 H 18 127/72 97 07/19/22 22:05 37.5 C 105 H 18 127/72 98 07/19/22 21:57 38.0 C H 118 H 24 142/64 H 96 07/19/22 21:02 109 H 20 95 07/19/22 21:00 112 H 23 142/64 H 96 07/19/22 20:30 112 H 20 142/86 H 97 O2 Del Method 07/20/22 07:08 Room Air 07/20/22 03:25 Room Air 07/19/22 22:05 Room Air 07/19/22 21:57 Room Air 07/19/22 21:02 07/19/22 21:00 07/19/22 20:30
[2022-07-20] MEDS: SODIUM CHLORIDE 0.9% 1000ML 1,000 ML IV SCH (08:22)
[2022-07-20] MEDS: DOCUSATE SODIUM 100 MG CAP PO SCH (08:22)
[2022-07-20] MEDS ORDERED: NON-FORMULARY MEDICATION (Prenatal Vit-Iron Fum-Folic Ac 65 mg iron- 1 mg Tablet) PO SCH (09:00)
[2022-07-20] MEDS ORDERED: PRENATAL VITAMIN 1 TAB PO SCH (09:00)
--- NOTE | 2022-07-20 11:44 | Pharmacy Report ---
Pharmacy PK ABX Note - Date of Service July 20, 2022 - Assessment and Plan Assessment 37 year old F receiving vancomycin, cefepime, and flagyl for treatment of wound infection (post ) and intra-abdominal abscess. Blood cultures pending, abdominal (surface culture) pending. Renal function stable. Patient pending transfer to [facility] [place] (pending bed availability). ID consulted. Day # 1 of antimicrobial therapy. Plan Vancomycin * Loading dose: 2250 mg IV x 1 * Maintenance dose: 1500 mg IV every 12 hours * Regimen is predicted to achieve target AUC/JORGE of 400-600 mg/L.hr * Will obtain a level around steady state if patient still admitted Pharmacy will continue to follow and will adjust dose/frequency as necessary. Thank you. Pharmacy has transitioned to AUC monitoring for vancomycin. AUC/JORGE is the preferred PK/PD target and is associated with decreased risk of nephrotoxicity compared to traditional trough targets.
[2022-07-20] MEDS ORDERED: HYDROmorphone INJ 1 MG/ML SYRINGE IV STA (12:40)
[2022-07-20] MEDS ORDERED: VANCOMYCIN HCL 1,500 MG in SODIUM CHLORIDE 0.9% 500 ML IV SCH (20:00)
--- NOTE | 2022-07-23 08:45 | Discharge Summary ---
Date of Service July 23, 2022 Admission HPI Per Admitting Provider Patient is a 37 yo s/p Primary C section on 07/10 after prolonged induction since 07/08. She has delivered a viable male infant on 07/10. She was discharged on 07/14. She has been having increased abdominal pain and redness on the incision as well as abdominal distention. She has not been able to pass gas but passes small liquid like BM's. She does not have much apetite and able to eat light food like yogurt, fruits. Nausea +, NO Vomiting She has had episodes of fevers in the afternoons, 100.4-101 F but they were resolving in the evenings. She has been seen by an residential sales associate in [place] and was prescribed Keflex 2 days ago for wound infection. She has started it yesterday. VB is mininal No problems with urination. She was seen at [facility] today and noted to have diffuse redness and induration on wound and sent here. She had blood work and CT of abd/ pelvis and I was called. She was given 1 mg Dilaudid here and is still in pain. Discharge Data Consultations 07/19/22 12:38 ED Decision to Admit Stat 07/19/22 14:28 Consult General Surgery Stat 07/20/22 11:14 Burn CD for patient Stat Hospital Course (1) Pelvic fluid collection: (2) Seroma infection, postoperative: (3) Wound infection following section, : (4) Post op infection: Plan Awaiting transfer to [facility] [place] at this time Continue scheduled antibiotics Supervising Physician Co-Signing Physician Notes Patient seen and examined, labs and imaging reviewed, agree with above. 37-year-old female 1 week status post with wound infection, and deep surgical space infection. She has been passing some gas on the toilet and having some liquid bowel movements. She feels discomfort in her pelvis and right side when having a bowel movement. She was evaluated in the emergency department is afebrile with stable vitals. Her abdomen is soft, , mildly distended. Her incision has significant erythema and a small portion of it was opened. The fascia appears intact. No peritonitis on exam. Leukocytosis with WBC 22. CT scan personally viewed and interpreted and agree with pelvic fluid with some irritation of the peritoneal lining and rim- enhancing. There is no free air, there is no definitive abscess, and there is no ileus or obstruction. Would recommend admission to the gynecology service with antibiotics. Can discuss with interventional radiology about sampling fluid and possibly even a drain. If surgical intervention is planned, and there is any concern, general surgery is happy to be available. No primary general surgical indication at this time. May advance the patient's diet as tolerated if no plans for the OR from a gynecologic perspective. Surgery will follow.
== END 2022-07-20 13:52 | disposition short-term general hospital (02) | DRG 776 ==
LOC: ED 09:50 → 3N 19:02